=== PATIENT | female | born 1950 | race Caucasian/White ===

== ENCOUNTER 2024-08-16 09:16 | Emergency (ER) | payer MEDICARE, OTHER, SELFPAY ==
[2024-08-16 09:20] VITALS: BP 118/56
--- NOTE | 2024-08-16 09:41 | ED.GENMED ---
History of Present Illness
General
Chief Complaint: Heart Rate Problem
Source: patient
Exam Limitations: none
Time Seen by Provider: 08/16/24 09:25
History of Present Illness
History of Present Illness:
73-year-old female presents with generalized weakness. She was brought here by EMS from facility. She was trying get out of her bed and felt very weak and she slid out of to the floor. She did not injure herself from sliding out of bed. She was
found to be in bigeminy upon EMS arrival. She denies chest pain or shortness of breath. She states she feels very dehydrated. No fevers no urinary symptoms.
Phy Exam
Physical Exam
Physical Exam:
General: Well-appearing female no acute respiratory distress
HEENT: Normocephalic mucosa dry neck is supple
Heart: Regular rate and rhythm
Lungs: Clear no wheeze
Extremities: No cyanosis or edema
Course
Orders/Labs/Results
Orders:
Orders
08/16/24 09:18
Electrocardiogram (*1) Urgent
Reason for Study: Chest Pain
EKG- Treatment ONCE
08/16/24 09:28
Complete Blood Count/With Diff Urgent
Comprehensive Metabolic Panel Urgent
Troponin I Urgent
08/16/24 09:41
0.9% Sodium Chloride 1000 ml [Nss] 1,000 ml IV BOLUS
08/16/24 09:43
CR Chest - 2 Views Urgent
Comment:
Reason For Exam: weakness
Abnormal Lab Results
08/16/24
09:28
WBC 11.2 H 10^3/uL
(4.8-10.8)
RBC 3.59 L 10^6/uL
(4.20-5.40)
Hgb 11.1 L g/dL
(12.0-16.0)
Hct 33.4 L %
(37.0-47.0)
RDW 16.4 H %
(11.5-14.5)
Absolute Neuts (auto) 9.0 H 10^3/uL
(1.4-6.5)
Absolute Lymphs (auto) 1.0 L 10^3/uL
(1.2-3.4)
Absolute Monos (auto) 1.0 H 10^3/uL
(0.1-0.6)
Neutrophils % 80.1 H %
(42.2-75.2)
Lymphocytes % 8.9 L %
(20.5-51.1)
BUN 18 H mg/dl
(7-17)
AST 12 L U/L
(14-36)
08/16/24 09:28
08/16/24 09:28
Vital Signs
Initial and Last Documented VS:
Initial Vital Signs
Temp Pulse Resp BP Pulse Ox
97.7 F 84 18 118/56 97
08/16/24 09:20 08/16/24 09:20 08/16/24 09:20 08/16/24 09:20 08/16/24 09:20
Last Documented Vital Signs
Temp Pulse Resp BP Pulse Ox
97.7 F 71 11 117/61 94
08/16/24 09:20 08/16/24 12:15 08/16/24 12:15 08/16/24 12:09 08/16/24 12:15
MDM/Problems Addressed
Differential Diagnosis Includes:
Weakness. Looks dry on exam. EKG from EMS showed bigeminy however there is no bigeminy noted currently. Heart rate is in the 80s on the monitor. Will check labs. Hydrate. Chest x-ray ordered due to weakness
*Critical Care Note
Total Time (30-74mins, 75-104mins- exclusive of procedures): Not Applicable
Update Note
Update Note:
Patient reevaluated appears stable does complain of weakness. Now spoke with son-in-law who is now in the room. This is the first time she slid out of bed. He also states this is the first time she has been weak like this. Workup today was
unrevealing between chest x-ray and labs. She was hydrated as she appears dry suspect mild dehydration. No indication for admission.
ED Attending Note
-
Portions of this chart may have been created with voice recognition software.� Occasional wrong word or��sound alike� substitutions may have occurred due to the inherent limitations of voice recognition software.
Discharge Plan
Departure
Patient Disposition: Home (Routine Discharge)
Date of Disposition: 08/16/24
Time of Disposition: 13:04
Patient with high blood pressure during this ER visit?: No
Discharge Problem:
Weakness
Instructions: Weakness
Prescriptions:
No Action
rivastigmine tartrate 1.5 mg Capsule
1.5 mg PO BID
atorvastatin 40 mg Tablet
40 mg PO HS
acetaminophen 325 mg Tablet
650 mg PO Q4HPRN PRN (Reason: mild pain/temp>100F)
polyethylene glycol 3350 [Miralax] 17 gram Powder In Packet
17 g PO DAILYPRN PRN (Reason: constipation)
ondansetron HCl [Zofran] 4 mg Tablet
4 mg PO Q6HPRN PRN (Reason: nausea)
amlodipine 2.5 mg Tablet
2.5 mg PO DAILY
famotidine 20 mg Tablet
20 mg PO DAILY
magnesium hydroxide [Milk of Magnesia] 400 mg/5 mL Suspension
30 ml PO DAILYPRN PRN (Reason: if no bm x 3 days)
calcium carbonate [Oyster Shell Calcium 500] 500 mg calcium (1,250 mg) Tablet
500 mg PO BID
bisacodyl [Dulcolax (bisacodyl)] 10 mg Suppository
10 mg NE DAILYPRN PRN (Reason: if mom is ineffective after 24hrs)
pantoprazole 40 mg Tablet,Delayed Release (Dr/Ec)
40 mg PO DAILY
calcium carbonate [Tums] 200 mg calcium (500 mg) Tablet,Chewable
400 mg PO Q8HPRN PRN (Reason: indigestion)
Fleet Enema 19-7 gram/118 mL Enema
118 ml NE DAILYPRN PRN (Reason: if dulcolax is ineffective after 24hrs)
nitroglycerin [Nitrostat] 0.4 mg Tablet, Sublingual
0.4 mg SUBLINGUAL [id number] PRN (Reason: chest pain)
methimazole 5 mg Tablet
2.5 mg PO DAILY
sertraline 25 mg Tablet
25 mg PO DAILY
aspirin 81 mg Tablet,Chewable
81 mg PO DAILY
mirtazapine 15 mg Tablet
7.5 mg PO HS
carbidopa-levodopa 25-100 mg Tablet
1.5 tab PO QID
simethicone 80 mg Tablet,Chewable
80 mg PO Q6HPRN PRN (Reason: gas)
metoprolol tartrate 25 mg Tablet
25 mg PO BID
Referrals:
Mg Gautam MD [Family Provider] -
Activity Restrictions/Additional Instructions:
It appears that you were dehydrated today. Please stay hydrated. Return here for worsening symptoms otherwise follow-up with your doctor.
Interventions
Interventions:
*Risk Screen - Suicide Last Done: 08/16/24 09:20
*General Assessment Last Done: 08/16/24 09:20
*Neglect/Abuse Screening Last Done: 08/16/24 09:20
*ED COVID-19 Vaccine History Last Done: 08/16/24 09:20
ED- Cardiac Assessment Last Done: 08/16/24 09:33
ED- Pulmonary Assessment Last Done: 08/16/24 09:33
Discharge Date and Time
Print Language: [place]
[2024-08-16] MEDS: NSS 1000 IV (09:42)
[2024-08-16 10:30] LABS: Troponin I < 0.012 ng/ml
[2024-08-16 10:51] LABS: Blood Urea Nitrogen 18 mg/dl (7-17); Estimated Creatinine Clearance 68 ml/min; Glucose 82 mg/dl (70-99); eGFR > 60.00
[2024-08-16 10:52] LABS: ALT (SGPT) < 10 U/L (0-35); AST (SGOT) 12 U/L (14-36); Albumin 3.8 g/dl (3.5-5.0); Alkaline Phosphatase 87 U/L (38-126); Calcium 9.4 mg/dl (8.4-10.2); Carbon Dioxide 29 mmol/L (22-30); Chloride 102 mmol/L (98-107); Potassium 3.8 mmol/L (3.5-5.1); Sodium 139 mmol/L (135-145); Total Protein 6.3 g/dl (6.3-8.2)
[2024-08-16 11:01] LABS: % Basophils 0.4 % (0-2); % Eosinophils 1.2 % (0-6); % Immature Granulocytes 0.3 % (0-0.5); % Lymphocytes 8.9 % (20.5-51.1); % Monocytes 9.1 % (1.7-9.3); % Neutrophils 80.1 % (42.2-75.2); Absolute Basophils 0.1 10^3/uL (0-0.2); Absolute Eosinophils 0.1 10^3/uL (0-0.7); Hematocrit 33.4 % (37.0-47.0); Hemoglobin 11.1 g/dL (12.0-16.0); Mean Corp Hgb Conc. 33.2 g/dL (33.0-37.0); Mean Corpuscular Hgb 30.9 pg (27.0-31.0); Nucleated Red Blood Cells % 0 %; Platelet Count 148 10^3/uL (130-400); Red Blood Cell Count 3.59 10^6/uL (4.20-5.40); Red Cell Dist. Width 16.4 % (11.5-14.5); White Blood Cell Count 11.2 10^3/uL (4.8-10.8)
[2024-08-16 12:09] VITALS: BP 117/61
[2024-08-16 13:00] VITALS: BP 96/65
[2024-08-16 14:00] VITALS: BP 101/64
== END 2024-08-16 14:36 | disposition home or self-care (01) ==
LOC: EMR 09:16
PROVIDERS: EMERGENCY PHYSICIAN Student in an Organized Health Care Education/Training Program; FAMILY PHYSICIAN Internal Medicine
DX: R53.1 Weakness (principal); W06.XXXA Fall from bed, initial encounter
CPT/HCPCS: 99285; 96360; 71046; 80053; 84484; 85025; 93005

== ENCOUNTER 2024-08-17 13:39 | Emergency (ER) | payer MEDICARE, OTHER, SELFPAY ==
[2024-08-17 13:43] VITALS: BP 149/59; BMI 20.6
[2024-08-17 14:00] VITALS: BP 133/65
[2024-08-17 14:02] LABS: % Basophils 0.8 % (0-2); % Eosinophils 2.6 % (0-6); % Immature Granulocytes 0.3 % (0-0.5); % Lymphocytes 15.2 % (20.5-51.1); % Monocytes 11.7 % (1.7-9.3); % Neutrophils 69.4 % (42.2-75.2); Absolute Basophils 0.1 10^3/uL (0-0.2); Absolute Eosinophils 0.2 10^3/uL (0-0.7); Absolute Lymphocytes 1.4 10^3/uL (1.2-3.4); Absolute Monocytes 1.1 10^3/uL (0.1-0.6); Absolute Neutrophils 6.2 10^3/uL (1.4-6.5); Hematocrit 29.1 % (37.0-47.0); Hemoglobin 9.9 g/dL (12.0-16.0); Mean Corpuscular Hgb 31.6 pg (27.0-31.0); Nucleated Red Blood Cells % 0 %; Red Blood Cell Count 3.13 10^6/uL (4.20-5.40); Red Cell Dist. Width 16.7 % (11.5-14.5)
--- NOTE | 2024-08-17 14:06 | ED.GENMED ---
History of Present Illness
<Mundo Hilario PA-C - Last Filed: 08/17/24 14:48>
General
Chief Complaint: Heart Rate Problem
Source: patient
Exam Limitations: none
Time Seen by Provider: 08/17/24 13:46
History of Present Illness
History of Present Illness:
73-year-old female seen here yesterday by myself presents for reevaluation for weakness. Heart rate was checked at the facility which showed heart rate in the 30s to 40s. She is noted to be in bigeminy. She denies chest pain. She denies
abdominal pain vomiting headache dizziness or shortness of breath. No other complaints at this time
Phy Exam
<Mundo Hilario PA-C - Last Filed: 08/17/24 14:48>
Physical Exam
Physical Exam:
General: Well-appearing female no acute respiratory distress
HEENT: Normocephalic atraumatic
Heart: RRR, no murmurs
Lungs: CTA
Ext: no cyanosis
SKin: Warm, no rash
Neuro: Alert and oriented no facial asymmetry no drift
Course
<Mundo Hilario PA-C - Last Filed: 08/17/24 14:48>
Orders/Labs/Results
Orders:
Orders
08/17/24 13:42
Electrocardiogram (*1) Urgent
Reason for Study: Chest Pain
EKG- Treatment ONCE
08/17/24 13:49
Complete Blood Count/With Diff Urgent
Comprehensive Metabolic Panel Urgent
08/17/24 14:19
Troponin I Urgent
08/17/24 14:46
NSS 1000mL Bolus over 1 hr 0.9% Sodium Chloride 1000 ml [Nss] 1,000 ml IV BOLUS
Abnormal Lab Results
08/17/24
13:49
RBC 3.13 L 10^6/uL
(4.20-5.40)
Hgb 9.9 L g/dL
(12.0-16.0)
Hct 29.1 L %
(37.0-47.0)
MCH 31.6 H pg
(27.0-31.0)
RDW 16.7 H %
(11.5-14.5)
Absolute Monos (auto) 1.1 H 10^3/uL
(0.1-0.6)
Lymphocytes % 15.2 L %
(20.5-51.1)
Monocytes % 11.7 H %
(1.7-9.3)
Creatinine 0.5 L mg/dL
(0.6-1.0)
AST 11 L U/L
(14-36)
Total Protein 5.8 L g/dl
(6.3-8.2)
08/17/24 13:49
08/17/24 13:49
Vital Signs
Initial and Last Documented VS:
Initial Vital Signs
Temp Pulse Resp BP Pulse Ox
98.0 F 83 16 149/59 95
08/17/24 13:43 08/17/24 13:43 08/17/24 13:43 08/17/24 13:43 08/17/24 13:43
Last Documented Vital Signs
Temp Pulse Resp BP Pulse Ox
98.0 F 89 22 133/65 96
08/17/24 13:43 08/17/24 14:30 08/17/24 14:30 08/17/24 14:00 08/17/24 14:30
<Estelita Talbert MD - Last Filed: 08/17/24 14:34>
Orders/Labs/Results
Orders:
Orders
08/17/24 13:42
Electrocardiogram (*1) Urgent
Reason for Study: Chest Pain
EKG- Treatment ONCE
08/17/24 13:49
Complete Blood Count/With Diff Urgent
Comprehensive Metabolic Panel Urgent
08/17/24 14:19
Troponin I Urgent
08/17/24 14:46
NSS 1000mL Bolus over 1 hr 0.9% Sodium Chloride 1000 ml [Nss] 1,000 ml IV BOLUS
Abnormal Lab Results
08/17/24
13:49
RBC 3.13 L 10^6/uL
(4.20-5.40)
Hgb 9.9 L g/dL
(12.0-16.0)
Hct 29.1 L %
(37.0-47.0)
MCH 31.6 H pg
(27.0-31.0)
RDW 16.7 H %
(11.5-14.5)
Absolute Monos (auto) 1.1 H 10^3/uL
(0.1-0.6)
Lymphocytes % 15.2 L %
(20.5-51.1)
Monocytes % 11.7 H %
(1.7-9.3)
Creatinine 0.5 L mg/dL
(0.6-1.0)
AST 11 L U/L
(14-36)
Total Protein 5.8 L g/dl
(6.3-8.2)
08/17/24 13:49
08/17/24 13:49
Vital Signs
Initial and Last Documented VS:
Initial Vital Signs
Temp Pulse Resp BP Pulse Ox
98.0 F 83 16 149/59 95
08/17/24 13:43 08/17/24 13:43 08/17/24 13:43 08/17/24 13:43 08/17/24 13:43
Last Documented Vital Signs
Temp Pulse Resp BP Pulse Ox
98.0 F 89 22 133/65 96
08/17/24 13:43 08/17/24 14:30 08/17/24 14:30 08/17/24 14:00 08/17/24 14:30
<Mundo Hilario PA-C - Last Filed: 08/17/24 14:48>
MDM/Problems Addressed
Differential Diagnosis Includes:
Weakness. Bigeminy noted on EKG which was seen on yesterday's EMS strip however yesterday the patient was not in bigeminy. Will recheck labs and troponin. Discussed with emergency room attending
<Mundo Hilario PA-C - Last Filed: 08/17/24 14:48>
*Critical Care Note
Total Time (30-74mins, 75-104mins- exclusive of procedures): Not Applicable
<Mundo Hilario PA-C - Last Filed: 08/17/24 14:48>
Update Note
Update Note:
Patient reevaluated. Daughter now in the room who states the patient has not been able to eat or drink anything for the past 2 to 3 weeks. She states she is losing weight and looks more pale than usual. Patient denies any pain. Hemoglobin
yesterday 11.1 and hemoglobin today is 9.9. Rectal exam showed brown stool which was heme-negative.
Discussed with emergency room attending saw the patient as well. Long discussion with family
And patient. Patient has overwhelming fatigue and weakness with trending down hemoglobin. There is been a lack of p.o. intake as well. Fluids ordered. Suspect weakness could be mouth factorial but unsuitable for discharge at this time
ED Attending Note
<Mundo Hilario PA-C - Last Filed: 08/17/24 14:48>
-
Portions of this chart may have been created with voice recognition software.� Occasional wrong word or��sound alike� substitutions may have occurred due to the inherent limitations of voice recognition software.
<Estelita Talbert MD - Last Filed: 08/17/24 14:34>
ED Attending Note
Patient seen and examined by attending physician: Yes
I performed the substantive portion of visit, reviewed & personally made and approve the management plan that is documented in note by myself or CHRIS.: Yes
ED Attending Note:
Patient appears nontoxic but pale. Patient complains of generalized weakness and exhaustion. Daughter reports that she has been declining and not eating as well. Patient has bigeminy on vehicle monitor technician. Patient has subtle bilateral crackles
bilaterally, however, her chest x-ray yesterday shows no sign of pneumonia or pulmonary edema. Patient's abdomen is soft and nontender.
Patient's hemoglobin has dropped more than 1 g since yesterday. We will do a rectal exam to check for GI bleed. Patient would likely be admitted for generalized weakness and to trend her hemoglobin. With a hemoglobin of 9.9, I do not think she
needs a blood transfusion at this time
Discharge Plan
Departure
Patient Disposition: Admit
Date of Disposition: 08/17/24
Time of Disposition: 14:47
Presentation/result/management discussed w/ accepting MD/DO: Hospitalist
Discharge Problem:
Weakness
Prescriptions:
No Action
rivastigmine tartrate 1.5 mg Capsule
1.5 mg PO BID
atorvastatin 40 mg Tablet
40 mg PO HS
acetaminophen 325 mg Tablet
650 mg PO Q4HPRN MDD 3000mg PRN (Reason: mild pain/temp>100F)
polyethylene glycol 3350 [Miralax] 17 gram Powder In Packet
17 g PO DAILYPRN PRN (Reason: constipation)
ondansetron HCl [Zofran] 4 mg Tablet
4 mg PO Q6HPRN PRN (Reason: nausea)
amlodipine 2.5 mg Tablet
2.5 mg PO DAILY
famotidine 20 mg Tablet
20 mg PO DAILY
magnesium hydroxide [Milk of Magnesia] 400 mg/5 mL Suspension
30 ml PO DAILYPRN PRN (Reason: if no bm x 3 days)
calcium carbonate [Oyster Shell Calcium 500] 500 mg calcium (1,250 mg) Tablet
500 mg PO BID
bisacodyl [Dulcolax (bisacodyl)] 10 mg Suppository
10 mg SD DAILYPRN PRN (Reason: if mom is ineffective after 24hrs)
pantoprazole 40 mg Tablet,Delayed Release (Dr/Ec)
40 mg PO DAILY
calcium carbonate [Tums] 200 mg calcium (500 mg) Tablet,Chewable
400 mg PO Q8HPRN PRN (Reason: indigestion)
Fleet Enema 19-7 gram/118 mL Enema
118 ml SD DAILYPRN PRN (Reason: if dulcolax is ineffective after 24hrs)
nitroglycerin [Nitrostat] 0.4 mg Tablet, Sublingual
0.4 mg SUBLINGUAL [id number] PRN (Reason: chest pain)
methimazole 5 mg Tablet
2.5 mg PO DAILY
sertraline 25 mg Tablet
25 mg PO DAILY
aspirin 81 mg Tablet,Chewable
81 mg PO DAILY
mirtazapine 15 mg Tablet
7.5 mg PO HS
carbidopa-levodopa 25-100 mg Tablet
1.5 tab PO QID
simethicone 80 mg Tablet,Chewable
80 mg PO Q6HPRN PRN (Reason: gas)
metoprolol tartrate 25 mg Tablet
25 mg PO BID
Interventions
Interventions:
*Risk Screen - Suicide Last Done: 08/17/24 13:43
*General Assessment Last Done: 08/17/24 13:43
*Neglect/Abuse Screening Last Done: 08/17/24 13:43
*ED- Fall Risk Assessment Last Done: 08/17/24 13:43
ED- Cardiac Assessment Last Done: 08/17/24 13:43
ED- Pulmonary Assessment Last Done: 04/03/25 13:43
Discharge Date and Time
Print Language: SUDANESE
[2024-08-17 14:36] LABS: ALT (SGPT) < 10 U/L (0-35); AST (SGOT) 11 U/L (14-36); Albumin 3.7 g/dl (3.5-5.0); Alkaline Phosphatase 75 U/L (38-126); Blood Urea Nitrogen 17 mg/dl (7-17); Carbon Dioxide 25 mmol/L (22-30); Chloride 105 mmol/L (98-107); Estimated Creatinine Clearance 68 ml/min; Glucose 99 mg/dl (70-99); Potassium 3.5 mmol/L (3.5-5.1); Sodium 138 mmol/L (135-145); Total Bilirubin 0.9 mg/dl (0.2-1.3); Total Protein 5.8 g/dl (6.3-8.2); eGFR > 60.00
[2024-08-17 14:42] LABS: Platelet Count 131 10^3/uL (130-400)
[2024-08-17 14:43] LABS: Acanthocytes 1+; Anisocytosis 1+; Hypochromasia 1+; Normal RBC Morphology No; Ovalocytes 1+; Polychromasia 1+
[2024-08-17] MEDS: NSS 1000 IV (14:56)
[2024-08-17 15:00] VITALS: BP 116/57
[2024-08-17 15:10] LABS: Troponin I < 0.012 ng/ml
--- NOTE | 2024-08-17 15:21 | W.PN.UPDATE ---
Update Note
Progress Note Update
I saw and examined the patient.
The COUNSELOR EDUCATION PROFESSOR or PA's note was reviewed and I agree with the note.
Comment: 79-year-old female presents with a chief complaint of generalized weakness. She presented to the ER yesterday with a complaint of generalized weakness. She was given IV fluids and sent back to her facility.
133/65, 89, 22, 98.0 �F, 96% RA
Gen: NAD, AAOx3.
Eyes: EOMI, PERRLA, no scleral icterus.
Neck: supple.
CV: RRR, +S1/S2, no m/r/g.
Resp: CTAB, no rales, wheezes, or rhonchi.
Abd: +BS, soft, NT, ND
Skin: No rashes.
Neuro: CN 2-12 intact, non-focal.
Psych: Normal mood and affect.
Lab Results
08/17/24 08/17/24
13:49 14:19
WBC 9.0
RBC 3.13 L
Hgb 9.9 L
Hct 29.1 L
MCV 93.0
MCH 31.6 H
MCHC 34.0
RDW 16.7 H
Plt Count 131
MPV Not Reportable
Abs Immat Gran (auto) 0.0
Absolute Neuts (auto) 6.2
Absolute Lymphs (auto) 1.4
Absolute Monos (auto) 1.1 H
Absolute Eos (auto) 0.2
Absolute Basos (auto) 0.1
CBC Comment
Immature Gran % 0.3
Neutrophils % 69.4
Lymphocytes % 15.2 L
Monocytes % 11.7 H
Eosinophils % 2.6
Basophils % 0.8
Nucleated RBC % 0
Normal RBC Morphology No
Polychromasia 1+
Hypochromasia 1+
Anisocytosis 1+
Ovalocytes 1+
Acanthocytes (Spur) 1+
Sodium 138
Potassium 3.5
Chloride 105
Carbon Dioxide 25
BUN 17
Creatinine 0.5 L
Estimated Creat Clear 68
eGFR > 60.00
Glucose 99
Calcium 9.0
Total Bilirubin 0.9
AST 11 L
ALT < 10
Alkaline Phosphatase 75
Troponin I < 0.012
Total Protein 5.8 L
Albumin 3.7
CXR: No acute cardiopulmonary process.
Generalized weakness:
-Apparently patient has had poor oral intake over the last 2 to 3 weeks due to nausea. Denies melena, hematochezia, vomiting, abdominal pain. Patient's daughter states that she has had weight loss but cannot state how much weight loss she has had
-Doubt patient's hemoglobin of 9.9 as the cause of her weakness. The drop from yesterday is due to IV fluids and is dilutional. Patient is heme-negative in the ER as per discussion with GURPREET Hilario.
-Patient does have a history of hyperthyroidism on methimazole. TSH with reflex free T4 has been added to her lab work.
-No indication for hospitalization at this time. Risks of hospitalization include further deconditioning, requiring a nosocomial infection, DVT and PE due to decreased mobility, etc. This was discussed with the patient's daughter.
-ER attending and advanced practitioner updated on my evaluation.
Recommendations: Discharge back to assisted facility. Recommend BMP and CBC in 1 week. Recommend follow-up on results of TSH and reflex free T4 and make adjustments to methimazole if needed based on those results.
--- NOTE | 2024-08-17 15:35 | CON.HOSP ---
Consultation
-
Date/Time Consultation Requested: 08/17/2024 1448
Date/Time Consultation Performed: 08/17/2024 1500
Requesting Provider: Mundo DAWKINS
Performing Provider: Thuy FRANCOIS
Reason for Consultation: weakness
Family Physician
-
Family Physician: Mg Gautam
Chief Complaint
-
generalized weakness
History of Present Illness
Patient is a 73-year-old female with past medical history Parkinson's disease, dementia, hyperlipidemia, ASCVD, PVD, essential hypertension, GERD and depression/anxiety who presented to [facility] ED for evaluation of generalized weakness and decreased
appetite for past 3 weeks. Patient is a poor historian, daughter at bedside who assists with HPI. She reports that approximately 3 weeks ago patient began complaining of nausea and had a few episodes of nausea. Since then she has continued to
complain of nausea with no episodes of emesis. Since this started patient has had a decrease in PO intake and appetite is very poor. She notes weight loss but can not give the amount loss. Denies any fever, chills, cough, shortness of breath,
constipation, diarrhea or urinary symptoms.
Medical History
Past Medical History
Past Medical History: Reports Other
Additional Past Medical History:
Parkinson's disease
dementia
hyperlipidemia
hyperthyroidism
ASCVD
PVD
essential hypertension
GERD
depression/anxiety
hx CA
Past Surgical History: Reports Other
Additional Past Surgical History:
hysterectomy
cardiac stent x2
Social History
Tobacco: Former Smoker (40 pack year history, quit 7 years ago )
Alcohol: None
Living: Skilled Nursing ([facility] )
Family History
Family History: Other (Father: CAD)
Allergies / Home Medications
Allergies reflects when Allergies were last updated in [facility].
Home Medications with original date entered in [facility]
Allergy/Medication List:
Allergies
Allergy/AdvReac Type Severity Reaction Status Date / Time
Penicillins Allergy Mild Rash Verified 08/16/24 09:19
Sulfa (Sulfonamide Allergy Mild Rash Verified 08/16/24 09:19
Antibiotics)
Home Medications
acetaminophen 325 mg tablet 650 mg PO Q4HPRN PRN mild pain/temp>100F 08/16/24
amlodipine 2.5 mg tablet 2.5 mg PO DAILY 08/16/24
aspirin 81 mg chewable tablet 81 mg PO DAILY 08/16/24
atorvastatin 40 mg tablet 40 mg PO HS 08/16/24
bisacodyl 10 mg rectal suppository (Dulcolax (bisacodyl)) 10 mg MN DAILYPRN PRN if mom is ineffective after 24hrs 08/16/24
calcium carbonate (Oyster Shell Calcium 500) 500 mg PO BID 08/16/24
calcium carbonate (Tums) 400 mg PO Q8HPRN PRN indigestion 08/16/24
carbidopa 25 mg-levodopa 100 mg tablet 1.5 tab PO QID 08/16/24
famotidine 20 mg tablet 20 mg PO DAILY 08/16/24
magnesium hydroxide 400 mg/5 mL oral suspension (Milk of Magnesia) 30 ml PO DAILYPRN PRN if no bm x 3 days 08/16/24
methimazole 5 mg tablet 2.5 mg PO DAILY 08/16/24
metoprolol tartrate 25 mg tablet 25 mg PO BID 08/16/24
mirtazapine 15 mg tablet 7.5 mg PO HS 08/16/24
nitroglycerin 0.4 mg sublingual tablet (Nitrostat) 0.4 mg sublingual [id number] PRN chest pain 08/16/24
ondansetron HCl 4 mg tablet 4 mg PO Q6HPRN PRN nausea 08/16/24
pantoprazole 40 mg tablet,delayed release 40 mg PO DAILY 08/16/24
polyethylene glycol 3350 17 gram oral powder packet (Miralax) 17 g PO DAILYPRN PRN constipation 08/16/24
rivastigmine tartrate 1.5 mg capsule 1.5 mg PO BID 08/16/24
sertraline 25 mg tablet 25 mg PO DAILY 08/16/24
simethicone 80 mg chewable tablet 80 mg PO Q6HPRN PRN gas 08/16/24
sodium phosphates 19 gram-7 gram/118 mL enema (Fleet Enema) 118 ml MN DAILYPRN PRN if dulcolax is ineffective after 24hrs 08/16/24
Review of Systems
-
Unable to obtain full review of systems at this time due to: Dementia
History Source: Family
Constitutional: Reports Weight Loss and Fatigue
Abdomen/GI: Reports Nausea, Vomiting and Anorexia
Physical Exam
Vital Signs
Vital Signs
Temp Pulse Resp BP Pulse Ox
98.0 F 89 22 133/65 96
08/17/24 13:43 08/17/24 14:30 08/17/24 14:30 08/17/24 14:00 08/17/24 14:30
Physical Exam
General: Well Developed, Well Nourished, No Apparent Distress and Comfortable
HEENT: Normocephalic, Moist Mucous Membranes and Atraumatic
Respiratory: Clear and Non Labored Respirations
Cardiac: S1/S2 and Irregular Rhythm
Breast: Deferred by me
GI: Soft, Non Tender, Non Distended and Normal Bowel Sounds
Rectal: Deferred by Provider
Musculoskeletal: No Clubbing, No Cyanosis and No Edema
Neuro: Awake, Alert and Nonfocal/Grossly Intact
Psych: Calm and Apparent Dementia
Laboratory Results
-
Laboratory Results
08/17/24 13:49
08/17/24 13:49
Total Bilirubin 0.9 mg/dl (0.2-1.3) 08/17/24 13:49
AST 11 U/L (14-36) L 08/17/24 13:49
ALT < 10 U/L (0-35) 08/17/24 13:49
Alkaline Phosphatase 75 U/L (38-126) 08/17/24 13:49
Troponin I < 0.012 ng/ml 08/17/24 14:19
Data Reviewed
-
Lab Data: Labs Reviewed
Impression / Plan
-
IMPRESSION/PLAN:
#adult failure to thrive
increased generalized weakness and decreased appetite
- No indication for hospital admission
- TSH and FT4 pending, can send results post discharge
- Patient can safely be discharged back to SNF
- follow up out patient with primary provider at facility
#Parkinson's disease
- continue carbidopa-levodopa
#dementia
- continue rivastigmine
#hyperthyroidism
- TSH and FT4 pending, can send results post discharge
- continue methimazole
#hyperlipidemia
#ASCVD
#PVD
- continue aspirin and atorvastatin
#essential hypertension
- continue amlodipine, metoprolol
#GERD
- continue famotidine and pantoprazole
#depression/anxiety
- continue mirtazapine and sertraline
#hx CA
s/p cardiac stent x2
Code status: full code
[2024-08-17 16:00] VITALS: BP 123/54
[2024-08-17 16:27] LABS: Free T4 2.17 ng/dl (0.78-2.19)
[2024-08-17 16:41] LABS: TSH 3.34 uIU/ml (0.47-4.68)
--- NOTE | 2024-08-17 16:47 | CM ---
Met with patient and dgtr. Dgtr wondering why no admit to [facility]. reviewed d/c plan and that labs can be done at SNF. Called spoke to MAGGIE Rivera at [facility]. She said since January no weight loss. Patient not frequent lorne. MAGGIE tried to get
dgtr to have patient stay at SNF and get IV fluids ordered there. MAGGIE feels patient is dehydrated . BMP was done on 08/15/24 at SNF. Asked dgtr to speak to MAGGIE to come up with a plan that dgtr can abide with. also told dgtr if she feels crosscutter rolled glass
might be helpful to make and appointment for her mother and set up transport with the SNF.
Dgtr said she would talk to MAGGIE.
[2024-08-17 17:00] VITALS: BP 124/69
[2024-08-17 18:00] VITALS: BP 113/66
== END 2024-08-17 20:46 | disposition home or self-care (01) ==
LOC: EMR 13:39
PROVIDERS: EMERGENCY PHYSICIAN Emergency Medicine; FAMILY PHYSICIAN Internal Medicine
DX: R53.1 Weakness (principal); I10 Essential (primary) hypertension; F32.A Depression, unspecified; F41.9 Anxiety disorder, unspecified; K21.9 Gastro-esophageal reflux disease without esophagitis; Z87.891 Personal history of nicotine dependence
CPT/HCPCS: 80053; 84439; 84443; 84484; 85025; 93005; 96360; 99284

== ENCOUNTER 2024-10-20 16:16 | Inpatient (IN) | payer MEDICARE, OTHER, SELFPAY ==
[2024-10-20] VITALS (11 sets, daily range): BP systolic 103–137; BP diastolic 55–91; BMI 17.6; BMI 18.2
--- NOTE | 2024-10-20 11:24 | ED.GENMED ---
History of Present Illness
General
Chief Complaint: Abdominal Pain
Source: patient, family (daughter at bedside), physician (would consider admission for failure to thrive. BMI 17 in our office. She is very ill/pale appearing. I would be quite surprised if her CT is unremarkable, she has lost an additional 20 lbs
in four weeks from what her daughter told me. Would consider an EGD if she were to be admitted. Recently evalu) and other (PCP Froilan texts: sending in a patient for failure to thrive and profound unintentional weight loss. Patient's name is Angela
Long 1950. She was recently in the ED earlier in August. Since that time has lost 20 lbs over the past month, poor p.o intake and previous concern for a drop in Hgb.)
Time Seen by Provider: 10/20/24 11:23
History of Present Illness
History of Present Illness:
73 yo female w h/o Parkinsons, Dementia, PVD, ASCVD, COPD, CHF, HTN, HLD, [place], Hypothyroid, Depression present from [facility] with her daughter who states pt became 'out of character' 2 months ago w constant nausea, intermittent vomiting,
abdominal pain, dry heaves, inability to eat. Evaluated here on 08/16 for weakness after sliding out of bed, given IVF's and back to facility. Back on 08/17 again for weakness, found in bigeminy, admitted, persistent nausea and not eating, weight loss.
According to DC record, sent back to facility for failure to thrive.
Daughter at bedside took pt to GI today Dr. Mcgovern sent pt here for evaluation as noted in above text from him.
Pt denies pain anywhere. Denies feeling SOB. No change in color of stool.
Review of Systems
Review of Systems
Allergies reviewed?: Yes
All Other Systems: ROS reviewed and negative except as documented in HPI and ROS
Constitutional: Reports fatigue
Respiratory: Denies trouble breathing
Cardiac: Denies chest pain, palpitations or syncope
ABD/GI: Reports abdominal pain (has had this but denies at this time), nausea, vomiting and anorexia; Denies bloody stools or black stools
: Denies dysuria
Musculoskeletal: Denies edema
Neurological: Reports weakness (generalized); Denies headache
Psychiatric: Reports other ( dementia, but seems to be answering questions appropriately)
Phy Exam
Physical Exam
Physical Exam:
GENERAL: No acute distress. A&Ox3. Pale, frail appearing
CONSTITUTIONAL: Afebrile.
EYES: clear, conjunctivae normal
ENMT: dry mucus membranes, Pharynx nl
RESPIRATORY: Regular respirations, nonlabored, lungs clear.
CARDIOVASCULAR: Regular rate and rhythm, no murmurs, no rubs.
GI: Soft, nontender, normal BS
Rectal: Brown stool, heme neg
MUSCULOSKELETAL: Moves with ease. Well perfused. No edema
SKIN: Warm, dry, pale
PSYCH: Depressed mood and affect. Well kept, interactive and appropriate
NEUROLOGIC: Awake, alert and oriented. No focal neurological deficits
Course
Orders/Labs/Results
Orders:
Orders
10/20/24 Breakfast
Clear Liquid
At Your Request: Limited Participation
Does patient need a safe tray?: No
10/20/24 11:33
0.9% Sodium Chloride 1000 ml [Nss] 1,000 ml IV BOLUS
Ondansetron Injectable [Zofran] 4 mg IV NOW STA
10/20/24 11:34
CT Abd/pel W Iv And Oral Contr Urgent
Comment:
Reason For Exam: wt loss, pale, nausea
Iohexol [Omnipaque] See Protocol PO NOW STA
10/20/24 11:44
Type+Screen Urgent
Complete Blood Count/With Diff Urgent
Comprehensive Metabolic Panel Urgent
TSH Reflex To Free T4 Urgent
10/20/24 12:05
ABO2 Routine
BBK Wristband Number:
Associate notified that ABO2 has been ordered: [id number]
Date: 10/20/24
Time: 11:50
[employer] Installer ID: [id number]
10/20/24 15:07
Straight cath- Treatment ONCE
10/20/24 15:17
Cefepime HCl [Maxipime] 2,000 mg IV NOW STA
10/20/24 15:20
Urinalysis Reflex To Culture Urgent
Date Specimen was Collected: 10/20/24
Time Specimen was Collected: 15:09
Urine Microscopic Reflex Cult Urgent
Urine Culture Urgent
JOE Source: U
Specimen Description:
Date Specimen was Collected: 10/20/24
Time Specimen was Collected: 15:09
Apixaban [Eliquis] 10 mg PO NOW STA
10/20/24 15:52
Potassium Chloride 10% Elixir [KCl Elixir] 40 meq PO NOW STA
10/20/24 15:58
Admit/Transfer Patient As Directed
Co-Sign Provider:
Level of Care: Inpatient admission
Assign to:: Medical/Surgical
Physician / Group: saulo
Diagnosis: DVT
Reason for Hospitalization: DVT
Expected length of stay greater than two midnights?: Yes
ELOS- Estimated Length of Stay in days: 3
I certify the patient meets the requirements for IP care: Yes
10/20/24 15:59
PRN Pain Medication Management As Directed
May give lesser potent ordered pain med per pt: Yes
preference::
Protocol:: Medication orders for pain may be administered in a
manner that supports deferring to patient preference
when the pt is:
- Requesting an ordered lesser potent pain medication.
Least to most potent pain medications are defined
as: acetaminophen < NSAID < tramadol < opioids
(morphine, oxycodone, hydromorphone).
- Requesting a lesser dose of the same medication IF
ORDERED.
- Requesting a less intrusive route of administration
if both routes are prescribed by the provider (PO <
IV).
10/20/24 16:00
Code Status As Directed
Resuscitation Status: Full Code
10/20/24 19:38
0.9% Sodium Chloride 1000 ml [Nss] 1,000 ml IV 60 mls/hr
Acetaminophen [Tylenol] 650 mg PO Q4HPRN PRN
Bisacodyl [Dulcolax] 10 mg RECTAL [id number] PRN
Carbidopa/Levodopa [Sinemet 25-100] 1.5 tablet PO QID
Docusate W/Senna [Senokot-S] 1 tablet PO BIDPRN PRN
Polyethylene Glycol Powder [Miralax] 17 grams PO DAILYPRN PRN
10/20/24 19:38
GASTROINTESTINAL CONSULT Routine
Consulting Provider: Martin Abdi
Was physician already notified: Yes
Activity As Directed
Activity Level: As Tolerated
Vital Signs As Directed
Frequency: Per unit guidelines
Ot Eval And Treat Routine
Pt Eval And Treat Routine
Activity Level: As Tolerated
10/20/24 20:00
Apixaban [Eliquis] 5 mg PO BID
Metoprolol [Lopressor] 25 mg PO BID
Rivastigmine Tartrate [Exelon] 1.5 mg PO BID
10/20/24 22:00
Atorvastatin [Lipitor] 40 mg PO HS
Cefepime HCl [Maxipime] 1,000 mg IV Q6H
Mirtazapine [Remeron] 7.5 mg PO HS
10/21/24 05:51
Basic Metabolic Panel IN AM
Complete Blood Count/No Diff IN AM
10/21/24 08:00
Amlodipine [Norvasc] 2.5 mg PO DAILY
Aspirin Chewable [Low Strength Aspirin] 81 mg PO DAILY
Famotidine [Pepcid] 20 mg PO DAILY
Methimazole [Tapazole] 2.5 mg PO DAILY
Pantoprazole [Protonix] 40 mg PO DAILY
Sertraline HCl [Zoloft] 25 mg PO DAILY
10/22/24 06:10
Basic Metabolic Panel IN AM
Complete Blood Count/No Diff IN AM
10/23/24 05:32
Basic Metabolic Panel IN AM
Complete Blood Count/No Diff IN AM
10/24/24 01:49
Basic Metabolic Panel IN AM
Complete Blood Count/No Diff IN AM
Abnormal Lab Results
10/20/24 10/20/24
11:44 15:20
RBC 2.92 L 10^6/uL
(4.20-5.40)
Hgb 8.6 L g/dL
(12.0-16.0)
Hct 26.7 L %
(37.0-47.0)
MCHC 32.2 L g/dL
(33.0-37.0)
RDW 18.7 H %
(11.5-14.5)
MPV 10.9 H fL
(7.4-10.4)
Absolute Lymphs (auto) 0.6 L 10^3/uL
(1.2-3.4)
Neutrophils % 84.2 H %
(42.2-75.2)
Lymphocytes % 8.0 L %
(20.5-51.1)
Potassium 3.2 L mmol/L
(3.5-5.1)
Creatinine 0.5 L mg/dL
(0.6-1.0)
Glucose 104 H mg/dl
(70-99)
AST 13 L U/L
(14-36)
Urine Ketones 1+ A
(Negative)
Ur Occult Blood Reflex 3+ A
(Negative)
Leukocyte Esterase Rfl 2+ A
(Negative)
Urine RBC 7-10 A /HPF
(0-2)
Urine Bacteria (Reflex) Few A
(Negative)
Crossmatch IS Only See Detail
10/20/24 11:44
10/20/24 11:44
Vital Signs
Initial and Last Documented VS:
Initial Vital Signs
Pulse Resp BP Pulse Ox
89 22 119/70 98
10/20/24 11:00 10/20/24 11:00 10/20/24 11:00 10/20/24 11:00
Last Documented Vital Signs
Temp Pulse Resp BP Pulse Ox
97.9 F 86 17 143/79 97
10/24/24 11:26 10/24/24 12:00 10/24/24 12:00 10/24/24 12:00 10/24/24 12:00
MDM/Problems Addressed
MDM/Problems Addressed:
73 yo female w h/o Parkinsons, Dementia, PVD, ASCVD, COPD, CHF, HTN, HLD, [place], Hypothyroid, Depression present from [facility] with her daughter who states pt became 'out of character' 2 months ago w constant nausea, intermittent vomiting,
abdominal pain, dry heaves, inability to eat. Evaluated here on 08/16 for weakness after sliding out of bed, given IVF's and back to facility. Back on 08/17 again for weakness, found in bigeminy, admitted, persistent nausea and not eating, weight loss.
According to DC record, sent back to facility for failure to thrive.
Daughter at bedside took pt to GI today Dr. Mcgovern sent pt here for evaluation as noted in above text from him.
Pt denies pain anywhere. Denies feeling SOB. No change in color of stool.
1:30 p.m.
CBC: Hgb 8.6 trending down from past two on 08/16 and 08/17
CMP: Mild hypokalemia (K 3.2) otherwise normal
3:[address] abd/pelvis with po and IV contrast radiology report read: IMPRESSION:
1. ACUTE DEEP VENOUS THROMBOSIS in the LEFT COMMON FEMORAL and FEMORAL VEINS.
2. SEVERE ACUTE CYSTITIS with diffuse urinary bladder wall thickening and mucosal hyperenhancement.
3. Suspected mild acute bilateral pyelonephritis secondary to bilateral ascending urinary tract infection.
4. Bilateral nonobstructing intrarenal calculi.
5. Mild proctocolitis involving the rectum and sigmoid colon.
6. Moderate to severe diverticulosis throughout the sigmoid colon.
7. Severe calcific atherosclerotic plaque in the abdominal aorta.
8. Severe calcific atherosclerotic plaque in the coronary arteries.
9. MULTILEVEL CHRONIC VERTEBRAL BODY ENDPLATE OSTEOPOROTIC INSUFFICIENCY FRACTURES in the lumbar and lower thoracic spine.
10. Severe discogenic degenerative disease at L5/S1.
11. Grade 1 anterolisthesis of L4 on L5 and L5 on S1 secondary to severe facet joint arthrosis.
No sign of sepsis.
Systemic symptoms: anorexia, failure to thrive
Rectal exam heme neg, manually disimpacted moderate amount of hard stool
Risk for MDR: skilled nursing,
Plan: Admit acute cystitis, bilateral pyelonephritis, anemia
*Critical Care Note
Total Time (30-74mins, 75-104mins- exclusive of procedures): Not Applicable
ED Attending Note
-
Portions of this chart may have been created with voice recognition software.� Occasional wrong word or��sound alike� substitutions may have occurred due to the inherent limitations of voice recognition software.
Discharge Plan
Departure
Patient Disposition: Admit
Date of Disposition: 10/20/24
Time of Disposition: 15:14
Admit to: Med/Surg
Presentation/result/management discussed w/ accepting MD/DO: Hospitalist
Condition: Fair
Discharge Problem:
Cystitis, Acute pyelonephritis, Acute deep vein thrombosis (DVT) of femoral vein of left lower extremity, Anemia, Proctocolitis
Interventions
Interventions:
*Risk Screen - Suicide Last Done: 10/20/24 11:00
*General Assessment Last Done: 10/20/24 11:00
*Neglect/Abuse Screening Last Done: 10/20/24 11:00
*ED- Fall Risk Assessment Last Done: 10/20/24 11:45
*ED COVID-19 Vaccine History Last Done: 10/20/24 11:45
*Nursing Disposition Last Done: 10/20/24 16:27
[facility] Assessment Last Done: 10/20/24 11:45
Discharge Date and Time
Discharge Date/Time: 10/20/24 19:34
[2024-10-20 11:53] LABS: % Basophils 0.4 % (0-2); % Eosinophils 0.3 % (0-6); % Immature Granulocytes 0.4 % (0-0.5); % Monocytes 6.7 % (1.7-9.3); % Neutrophils 84.2 % (42.2-75.2); Absolute Lymphocytes 0.6 10^3/uL (1.2-3.4); Absolute Monocytes 0.5 10^3/uL (0.1-0.6); Absolute Neutrophils 6.5 10^3/uL (1.4-6.5); Hematocrit 26.7 % (37.0-47.0); Hemoglobin 8.6 g/dL (12.0-16.0); Mean Corp Hgb Conc. 32.2 g/dL (33.0-37.0); Mean Corpuscular Hgb 29.5 pg (27.0-31.0); Mean Corpuscular Volume 91.4 fL (81.0-99.0); Mean Platelet Volume 10.9 fL (7.4-10.4); Nucleated Red Blood Cells % 0.3 %; Platelet Count 263 10^3/uL (130-400); Red Blood Cell Count 2.92 10^6/uL (4.20-5.40); Red Cell Dist. Width 18.7 % (11.5-14.5); White Blood Cell Count 7.7 10^3/uL (4.8-10.8)
[2024-10-20] MEDS: ZOFRAN 4 MG IV (12:06)
[2024-10-20] MEDS: OMNIPAQUE 50 ML PO (12:06)
[2024-10-20] MEDS: NSS 1000 IV ×2 (12:07→21:36)
[2024-10-20 12:12] LABS: ALT (SGPT) < 10 U/L (0-35); AST (SGOT) 13 U/L (14-36); Albumin 3.7 g/dl (3.5-5.0); Alkaline Phosphatase 71 U/L (38-126); Blood Urea Nitrogen 13 mg/dl (7-17); Calcium 9.3 mg/dl (8.4-10.2); Carbon Dioxide 27 mmol/L (22-30); Chloride 105 mmol/L (98-107); Estimated Creatinine Clearance 57 ml/min; Glucose 104 mg/dl (70-99); Potassium 3.2 mmol/L (3.5-5.1); Sodium 138 mmol/L (135-145); Total Bilirubin 0.9 mg/dl (0.2-1.3); Total Protein 6.3 g/dl (6.3-8.2); eGFR > 60.00
--- NOTE | 2024-10-20 15:36 | HPS.HSE ---
Family Physician
-
Family Physician: Mg Gautam
Chief Complaint
-
mid lower abdominal pain
History of Present Illness
73 yo female w h/o Parkinson, Dementia, PVD, ASCVD, COPD, HTN, HLD, [place], Hyperthyroidism, Depression presented to us with mid abdominal pain associated with nausea for past few days. patient denied vomiting or diarrhea. Denies any headache,
dizziness syncope. Patient denied any fever, chills, chest pain,. Patient has chronic short of breath. Patient denied dysuria hematuria.
Patient was evaluated by GI who recommended ER admission due to poor appetite and weight loss. Patient lost about 20 pounds in [address] with DVT, pyelonephritis and cystitis. Patient received a dose of Eliquis, cefepime, normal saline and Zofran in ER. Admitted for further management
Medical History
Past Medical History
Past Medical History: Reports Other
Additional Past Medical History:
Parkinson's disease
dementia
hyperlipidemia
hyperthyroidism
ASCVD
PVD
essential hypertension
GERD
depression/anxiety
hx UT
Past Surgical History: Reports Other
Additional Past Surgical History:
hysterectomy
cardiac stent x2
Social History
Tobacco: Non-smoker
Alcohol: None
Drug: None
Living: [facility]
Family History
Family History: Not pertinent
Allergies / Home Medications
Allergies reflects when Allergies were last updated in [employer].
Home Medications with original date entered in [employer]
Allergy/Medication List:
Allergies
Allergy/AdvReac Type Severity Reaction Status Date / Time
Penicillins Allergy Mild Rash Verified 10/20/24 10:59
Sulfa (Sulfonamide Allergy Mild Rash Verified 10/20/24 10:59
Antibiotics)
Home Medications
acetaminophen 325 mg tablet 650 mg PO Q4HPRN PRN mild pain/temp>100F 08/16/24
amlodipine 2.5 mg tablet 2.5 mg PO DAILY 08/16/24
aspirin 81 mg chewable tablet 81 mg PO DAILY 08/16/24
atorvastatin 40 mg tablet 40 mg PO HS 08/16/24
bisacodyl 10 mg rectal suppository (Dulcolax (bisacodyl)) 10 mg MO DAILYPRN PRN if mom is ineffective after 24hrs 08/16/24
calcium carbonate (Oyster Shell Calcium 500) 500 mg PO BID 08/16/24
calcium carbonate (Tums) 400 mg PO Q8HPRN PRN indigestion 08/16/24
carbidopa 25 mg-levodopa 100 mg tablet 1.5 tab PO QID 08/16/24
famotidine 20 mg tablet 20 mg PO DAILY 08/16/24
magnesium hydroxide 400 mg/5 mL oral suspension (Milk of Magnesia) 30 ml PO DAILYPRN PRN if no bm x 3 days 08/16/24
methimazole 5 mg tablet 2.5 mg PO DAILY 08/16/24
metoprolol tartrate 25 mg tablet 25 mg PO BID 08/16/24
mirtazapine 15 mg tablet 7.5 mg PO HS 08/16/24
nitroglycerin 0.4 mg sublingual tablet (Nitrostat) 0.4 mg sublingual [id number] PRN chest pain 08/16/24
ondansetron HCl 4 mg tablet 4 mg PO Q6HPRN PRN nausea 08/16/24
pantoprazole 40 mg tablet,delayed release 40 mg PO DAILY 08/16/24
polyethylene glycol 3350 17 gram oral powder packet (Miralax) 17 g PO DAILYPRN PRN constipation 08/16/24
rivastigmine tartrate 1.5 mg capsule 1.5 mg PO BID 08/16/24
sertraline 25 mg tablet 25 mg PO DAILY 08/16/24
simethicone 80 mg chewable tablet 80 mg PO Q6HPRN PRN gas 08/16/24
sodium phosphates 19 gram-7 gram/118 mL enema (Fleet Enema) 118 ml MO DAILYPRN PRN if dulcolax is ineffective after 24hrs 08/16/24
Review of Systems
-
Constitutional: Reports No Symptoms
EENT: Reports No Symptoms
Respiratory: Reports No Symptoms
Cardiac: Reports No Symptoms
Abdomen/GI: Reports Abdominal Pain and Nausea
: Reports No Symptoms
Musculoskeletal: Reports No Symptoms
Skin: Reports No Symptoms
Neurological: Reports No Symptoms
Endocrine: Reports No Symptoms
Hematologic/Lymphatic: Reports No Symptoms
Psych: Reports No Symptoms
Physical Exam
Vital Signs
Vital Signs
Temp Pulse Resp BP Pulse Ox
97.9 F 83 20 131/79 97
10/20/24 15:24 10/20/24 15:24 10/20/24 15:24 10/20/24 15:24 10/20/24 15:24
Physical Exam
General: Well Developed, Well Nourished and No Apparent Distress
HEENT: NormoCephalic, Moist mucous membranes and Atraumatic
Respiratory: Clear
Cardiac: S1/S2 and Regular Rhythm; No Murmur or Rub
GI: Soft, Non Tender, Non Distended and Normal Bowel Sounds; No Organomegaly
Rectal: Deferred by Provider
Musculoskeletal: No Clubbing, No Cyanosis and No Edema
Skin: No Rash
Neuro: AO x 3 and Nonfocal/grossly intact
Psych: Calm
Laboratory Results
-
10/20/24 11:44
10/20/24 11:44
Laboratory Results
Total Bilirubin 0.9 mg/dl (0.2-1.3) 10/20/24 11:44
AST 13 U/L (14-36) L 10/20/24 11:44
ALT < 10 U/L (0-35) 10/20/24 11:44
Alkaline Phosphatase 71 U/L (38-126) 10/20/24 11:44
Data Reviewed
-
CT Scan: Report Reviewed by me
Lab Data: Labs Reviewed by me
Impression/Plan
-
# Left femoral DVT
- CT with impression of ACUTE DEEP VENOUS THROMBOSIS in the LEFT COMMON FEMORAL and FEMORAL VEINS.
- Eliquis continued
# cystitis/early bilateral pyelonephritis
- CT with impression of SEVERE ACUTE CYSTITIS with diffuse urinary bladder wall thickening and mucosal hyperenhancement. Suspected mild acute bilateral pyelonephritis secondary to bilateral ascending urinary tract infection Bilateral
nonobstructing intrarenal calculi.Mild proctocolitis involving the rectum and sigmoid colon. Moderate to severe diverticulosis throughout the sigmoid colon.Severe calcific atherosclerotic plaque in the abdominal aorta. Severe calcific
atherosclerotic plaque in the coronary arteries.MULTILEVEL CHRONIC VERTEBRAL BODY ENDPLATE OSTEOPOROTIC INSUFFICIENCY FRACTURES in the lumbar and lower thoracic spine. Severe discogenic degenerative disease at L5/S1.Grade 1 anterolisthesis of L4 on
L5 and L5 on S1 secondary to severe facet joint arthrosis.
- UA pending
- IV cefepime continued
- Tylenol as needed for fever or pain
# Abdominal pain/poor appetite/weight loss unclear cause
- Will get GI involved
# Anemia of chronic disease
-Hemoglobin stable at 8.6
- No active bleeding
- Continue to monitor
# Hypokalemia likely from poor oral intake
- K3.2
- Oral KCl
- BMP in a.m.
#Parkinson's disease
- continue carbidopa-levodopa
#dementia
- continue rivastigmine
#hyperthyroidism
- continue methimazole
#hyperlipidemia
#ASCVD
#PVD
- continue aspirin and atorvastatin
#essential hypertension
- continue amlodipine, metoprolol
#GERD
- continue famotidine and pantoprazole
#depression/anxiety
- continue mirtazapine and sertraline
#hx [place]
s/p cardiac stent x2
Code status: full code
[2024-10-20] MEDS: MAXIPIME 2000 MG IV (15:40)
[2024-10-20] MEDS: ELIQUIS 10 MG PO (15:40)
[2024-10-20 15:48] LABS: Urine Albumin Negative (Neg - Trace); Urine Bilirubin Negative (Negative); Urine Character Clear (Clear); Urine Color Yellow; Urine Glucose Negative (Negative); Urine Ketone 1+ (Negative); Urine Leukocyte 2+ (Negative); Urine Nitrite Negative (Negative); Urine Occult Blood 3+ (Negative); Urine Specific Gravity 1.005 (<1.030); Urine Urobilinogen Negative (Neg - 1+)
[2024-10-20 15:57] LABS: TSH Reflex To Free T4 3.85 uIU/ml (0.47-4.68)
[2024-10-20] MEDS: KCL ELIXIR 40 MEQ PO (16:11)
[2024-10-20 16:19] LABS: Urine Mucus Few
[2024-10-20 16:20] LABS: Urine Bacteria Few (Negative)
--- NOTE | 2024-10-20 16:27 | EDRN ---
this RN called the receiving unit and notified them that paper report was going to be tubed up
--- NOTE | 2024-10-20 20:00 | PTCARENOTE ---
pt oriented to self, no c/o pain. bed alarm plug in. oriented to room w/ call fermin in [facility].
[2024-10-20] MEDS: SINEMET 25-100 1.5 TABLET PO (20:41)
[2024-10-20] MEDS: REMERON 7.5 MG PO (21:36)
[2024-10-20] MEDS: LIPITOR 40 MG PO (21:39)
[2024-10-20] MEDS: EXELON 1.5 MG PO (21:39)
[2024-10-20] MEDS: LOPRESSOR 25 MG PO (21:39)
[2024-10-20] MEDS: MAXIPIME 1000 MG IV (21:40)
[2024-10-20] MEDS: STERILE WATER FOR INJECTION 10 ML IV (21:41)
[2024-10-20] MEDS: SINEMET 25-100 PO (21:41)
[2024-10-21] MEDS: MAXIPIME 1000 MG IV ×4 (04:02→22:31)
[2024-10-21] MEDS: STERILE WATER FOR INJECTION 10 ML IV ×4 (04:02→22:32)
--- NOTE | 2024-10-21 06:46 | CON.GI ---
Addendum entered and electronically signed by Martin Abdi MD 10/21/24 14:23:
I saw and examined the patient.
The INSURANCE INSTRUCTOR or PA's note was reviewed and I agree with the note.
Comment:
Pt with a hx of dementia, htn, parkinsons with failure to thrive, weight loss. Found to have acute DVT, no obvious Gi abnormality.
abd: soft, NT
impression:
weight loss
failure to thrive
anemia
plan:
EGD/colonoscopy
check b12/tsh/folate/iron studies
follow hgb
v
Addendum entered and electronically signed by ALESSANDRO Mcmillan 10/21/24 11:49:
Pt unable to drink colyte prep will try miralax/Gatorade next
Original Note:
Consultation
-
Date/Time Consultation Requested: 10/20/241939
Date/Time Consultation Performed: 10/21/24 0800
Requesting Provider: ALESSANDRO Vidales
Performing Provider: ALESSANDRO Williamson, Martin Abdi MD
Reason for Consultation: failure to thrive, wt loss
Medical History
Chief Complaint / HPI
Chief Complaint: nausea, abdominal pain
History of Present Illness:
Pt is a 73 y.o female with a past medical history of HTN, HLD, hyperthyroidism, CAD (s/p stents), bradycardia, PVCs, asthma/COPD, Parkinson's disease, dementia, anxiety/depression and acid reflux with new GI patient evaluation 10/20 due to concern for
nausea, trouble eating and profound unintentional weight loss. Pt did have ER evaluation in August with weakness, fatigue, and poor po intakes. She was noted with hbg 9.9 with heme neg stool. Since that visit pt continues to decline with further wt
loss. She was referred back to ER and on CT imaging noted DVT, cystitis, b/l pyelonephritis, mild proctocolitis, diverticulosis, atherosclerosis, osteoporotic fracture, DDD. She is also noted with further drop in hbg to 7.1. Per review with
patient and family noted with decreased appetite. She was recently eating some random items such as pickles or olives but did not eat large meals. She admits to nausea but denies dysphagia, GERD, vomiting, abdominal pain, diarrhea, constiaption
or bleeding. No hx EGD or colonoscopy in past.
Past Medical History
Past Medical History: Asthma, CAD, COPD, GERD, HTN, Hypercholesterolemia, Hyperthyroidism, Psychiatric (dementia, anxiety/depression) and Other (bradicardia, parkinson's )
Past Surgical History: Cardiac (stents)
Social History
Tobacco: Former Smoker
Alcohol: None
Drug: None
Living: Usp
Employment: Retired
Family History
Family History: Other (father CAD, pt denies famly hx GI issues )
Allergies / Home Medications
Allergy/AdvReac Type Severity Reaction Status Date / Time
Penicillins Allergy Rash Verified 10/20/24 20:34
Sulfa (Sulfonamide Allergy Rash Verified 10/20/24 20:34
Antibiotics)
�Medication �Instructions �Recorded
acetaminophen 325 mg tablet 650 mg PO Q4HPRN PRN mild 08/16/24
pain/temp>100F
amlodipine 2.5 mg tablet 2.5 mg PO DAILY Blood Pressure 08/16/24
aspirin 81 mg chewable tablet 81 mg PO DAILY Heart 08/16/24
Disease/Condition
atorvastatin 40 mg tablet 40 mg PO HS High Cholesterol 08/16/24
bisacodyl 10 mg rectal suppository 10 mg FL DAILYPRN PRN if mom is 08/16/24
(Dulcolax (bisacodyl)) ineffective after 24hrs
calcium carbonate (Tums) 400 mg PO Q8HPRN PRN indigestion 08/16/24
carbidopa 25 mg-levodopa 100 mg 1.5 tab PO QID Neurological 08/16/24
tablet Condition
famotidine 20 mg tablet 20 mg PO DAILY Gastrointestinal 08/16/24
Issue
methimazole 5 mg tablet 2.5 mg PO DAILY Thyroid 08/16/24
metoprolol tartrate 25 mg tablet 25 mg PO BID Blood Pressure 08/16/24
nitroglycerin 0.4 mg sublingual 0.4 mg sublingual [id number] PRN 08/16/24
tablet (Nitrostat) chest pain
ondansetron HCl 4 mg tablet 4 mg PO Q6HPRN PRN nausea 08/16/24
pantoprazole 40 mg tablet,delayed 40 mg PO DAILY Gastrointestinal 08/16/24
release Issue
simethicone 80 mg chewable tablet 80 mg PO Q6HPRN PRN gas 08/16/24
sodium phosphates 19 gram-7 118 ml FL DAILYPRN PRN if dulcolax 08/16/24
gram/118 mL enema (Fleet Enema) is ineffective after 24hrs
calcium carbonate (Oyster Shell 500 mg PO BID Supplement 10/20/24
Calcium)
magnesium hydroxide 400 mg/5 mL 30 ml PO DAILY PRN CONSTIPATION 10/20/24
oral suspension (Milk of Magnesia)
mirtazapine 30 mg tablet 30 mg PO HS Neurological Condition 10/20/24
polyethylene glycol 3350 17 gram 17 g PO DAILYPRN PRN CONSTIPATION 10/20/24
oral powder packet (Miralax)
rivastigmine tartrate 3 mg capsule 3 mg PO BID Neurological Condition 10/20/24
sertraline 25 mg tablet (Zoloft) 75 mg PO DAILY Mental 10/20/24
Health/Anxiety
Review of Systems
-
Unable to obtain full review of systems at this time due to: Other (forgetful but family assist )
History Source: Patient and Family
Constitutional: Reports Weight Loss and Fatigue
EENT: Reports No Symptoms
Respiratory: Reports No Symptoms
Cardiac: Reports No Symptoms
Abdomen/GI: Reports Nausea and Other (decreased appetite )
: Reports No Symptoms
Musculoskeletal: Reports No Symptoms
Skin: Reports No Symptoms
Neurological: Reports Weakness
Endocrine: Reports No Symptoms
Hematologic/Lymphatic: Reports No Symptoms
Vital Signs
Temp Pulse Resp BP Pulse Ox
97.7 F 61 18 116/55 97
10/20/24 23:30 10/20/24 23:30 10/20/24 23:30 10/20/24 23:30 10/20/24 23:30
Physical Exam
Exam
General: Other (pale, thin appearing )
HEENT: Normocephalic and Anicteric
Respiratory: Clear
Cardiac: Regular Rhythm
GI: Soft, Non Tender and Non Distended
Musculoskeletal: No Clubbing and No Cyanosis
Skin: Warm and Dry
Neuro: Awake, Alert and Other (confused at times )
Psych: Calm
Results
WBC 7.7 10^3/uL (4.8-10.8) 10/20/24 11:44
Hgb 8.6 g/dL (12.0-16.0) L 10/20/24 11:44
Hct 26.7 % (37.0-47.0) L 10/20/24 11:44
MCV 91.4 fL (81.0-99.0) 10/20/24 11:44
Plt Count 263 10^3/uL (130-400) 10/20/24 11:44
Absolute Neuts (auto) 6.5 10^3/uL (1.4-6.5) 10/20/24 11:44
Sodium 138 mmol/L (135-145) 10/20/24 11:44
Potassium 3.2 mmol/L (3.5-5.1) L 10/20/24 11:44
Chloride 105 mmol/L (98-107) 10/20/24 11:44
Carbon Dioxide 27 mmol/L (22-30) 10/20/24 11:44
BUN 13 mg/dl (7-17) 10/20/24 11:44
Creatinine 0.5 mg/dL (0.6-1.0) L 10/20/24 11:44
Calcium 9.3 mg/dl (8.4-10.2) 10/20/24 11:44
Total Bilirubin 0.9 mg/dl (0.2-1.3) 10/20/24 11:44
AST 13 U/L (14-36) L 10/20/24 11:44
ALT < 10 U/L (0-35) 10/20/24 11:44
Alkaline Phosphatase 71 U/L (38-126) 10/20/24 11:44
Diagnostic Image Results:
10/20/24 CT Abd/pel W Iv And Oral Contr
1. ACUTE DEEP VENOUS THROMBOSIS in the LEFT COMMON FEMORAL and FEMORAL VEINS.
2. SEVERE ACUTE CYSTITIS with diffuse urinary bladder wall thickening and mucosal hyperenhancement.
3. Suspected mild acute bilateral pyelonephritis secondary to bilateral ascending urinary tract infection.
4. Bilateral nonobstructing intrarenal calculi.
5. Mild proctocolitis involving the rectum and sigmoid colon.
6. Moderate to severe diverticulosis throughout the sigmoid colon.
7. Severe calcific atherosclerotic plaque in the abdominal aorta.
8. Severe calcific atherosclerotic plaque in the coronary arteries.
9. MULTILEVEL CHRONIC VERTEBRAL BODY ENDPLATE OSTEOPOROTIC INSUFFICIENCY FRACTURES in the lumbar and lower thoracic spine.
10. Severe discogenic degenerative disease at L5/S1.
11. Grade 1 anterolisthesis of L4 on L5 and L5 on S1 secondary to severe facet joint arthrosis.
Prior GI Procedures:
EGD: none
Colonoscopy: none
Assessment / Plan
-
Pt is a 73 y.o female with a past medical history of HTN, HLD, hyperthyroidism, CAD (s/p stents), bradycardia, PVCs, asthma/COPD, Parkinson's disease, dementia, anxiety/depression and acid reflux with new GI patient evaluation 10/20 due to concern for
nausea, trouble eating and profound unintentional weight loss. Pt did have ER evaluation in August with weakness, fatigue, and poor po intakes. She was noted with hbg 9.9 with heme neg stool. Since that visit pt continues to decline with further wt
loss. She was referred back to ER and on CT imaging noted DVT, cystitis, b/l pyelonephritis, mild proctocolitis, diverticulosis, atherosclerosis, osteoporotic fracture, DDD. She is also noted with further drop in hbg to 7.1. Per review with
patient and family noted with decreased appetite. She was recently eating some random items such as pickles or olives but did not eat large meals. She admits to nausea but denies dysphagia, GERD, vomiting, abdominal pain, diarrhea, constipation
or bleeding. No hx EGD or colonoscopy in past.
-symptomatic anemia
-wt loss
-nausea
-failure to thrive
-CT with new DVT
-mild proctocolitis
-Ct with b/l pyelonephritis
-osteoporotic fracture/DDD
other med problems:
-HTN
-HLD
-hyperthyroidism on Methimazole TSH 3.85
-CAD (s/p stents)
- bradycardia,
-PVCs
-asthma/COPD
-Parkinson's disease
-dementia, anxiety/depression
-acid reflux
PLAN:
etiology of failure to thrive and anemia related to new DVT, cystitis/UTI vs underlying GI issue with nausea, decreased appetite
reviewed with patient and daughter further drop in hbg since admission they are agreeable for EGD/colon and aware pt may not prep well
plan for conversion to IV heparin and stop Eliquis
trend hbg
for transfusion
add iron studies/B12/folate
add INR for am with poor nutrition to ensure stable
clear diet
2 day prep as tolerated
replete K
cont abx for possible UTI- cx pending
reviewed with hospitalist and nursing staff via tiger text
-
-
Thank you for consultation and allowing me to participate in the patient's care. Please call the donor relations manager GI physician during the after hours with any questions or concerns.
[2024-10-21 07:04] LABS: Hematocrit 22.1 % (37.0-47.0); Hemoglobin 7.1 g/dL (12.0-16.0); Mean Corp Hgb Conc. 32.1 g/dL (33.0-37.0); Mean Corpuscular Hgb 29.3 pg (27.0-31.0); Mean Corpuscular Volume 91.3 fL (81.0-99.0); Mean Platelet Volume 11.1 fL (7.4-10.4); Platelet Count 222 10^3/uL (130-400); Red Blood Cell Count 2.42 10^6/uL (4.20-5.40); Red Cell Dist. Width 18.9 % (11.5-14.5); White Blood Cell Count 7.6 10^3/uL (4.8-10.8)
[2024-10-21 07:38] LABS: Blood Urea Nitrogen 7 mg/dl (7-17); Calcium 8.1 mg/dl (8.4-10.2); Carbon Dioxide 25 mmol/L (22-30); Chloride 108 mmol/L (98-107); Estimated Creatinine Clearance 57 ml/min; Glucose 71 mg/dl (70-99); Potassium 3.2 mmol/L (3.5-5.1); Sodium 137 mmol/L (135-145); eGFR > 60.00
[2024-10-21 08:10] VITALS: BP 119/73
[2024-10-21 08:28] LABS: Hematocrit 22.1 % (37.0-47.0); Hemoglobin 7.4 g/dL (12.0-16.0); Mean Corp Hgb Conc. 33.5 g/dL (33.0-37.0); Mean Corpuscular Hgb 30.1 pg (27.0-31.0); Mean Corpuscular Volume 89.8 fL (81.0-99.0); Mean Platelet Volume 10.7 fL (7.4-10.4); Platelet Count 237 10^3/uL (130-400); Red Blood Cell Count 2.46 10^6/uL (4.20-5.40); Red Cell Dist. Width 18.6 % (11.5-14.5)
[2024-10-21 08:39] LABS: APTT 29.3 Sec (23.4-35.0)
[2024-10-21 08:59] LABS: Iron 106 ug/dl (37-170)
[2024-10-21 09:08] LABS: Percent Saturation 66 % (20-50); Total Iron Binding Capacity 160 ug/dl (265-497)
[2024-10-21] MEDS: TAPAZOLE 2.5 MG PO (09:42)
[2024-10-21] MEDS: ZOLOFT 25 MG PO (09:42)
[2024-10-21] MEDS: SINEMET 25-100 1.5 TABLET PO ×4 (09:42→21:25)
[2024-10-21] MEDS: LOW STRENGTH ASPIRIN 81 MG PO (09:42)
[2024-10-21] MEDS: LOPRESSOR 25 MG PO ×2 (09:42→20:50)
[2024-10-21] MEDS: NORVASC 2.5 MG PO (09:43)
[2024-10-21] MEDS: EXELON 1.5 MG PO ×2 (09:43→20:51)
[2024-10-21] MEDS: PEPCID 20 MG PO (09:43)
[2024-10-21] MEDS: PROTONIX 40 MG PO (09:43)
[2024-10-21] MEDS: HEPARIN 25000 UNITS/250 ML IV (10:05)
[2024-10-21 10:07] LABS: Folate 1.5 ng/ml (2.76-20); Vitamin B12 263 pg/ml (239-931)
[2024-10-21] MEDS: NULYTELY SOLUTION 2 LITERS PO (10:13)
[2024-10-21] MEDS: KCL 40 MEQ PO (10:44)
[2024-10-21 10:56] VITALS: BP 125/64
--- NOTE | 2024-10-21 10:59 | CM ---
CM spoke with ABI Arechiga at [facility] [phone] and told pt is an assist of 1 for transfers and adl's. Often refuses to get OOB. Currently being skilled for speech.
Non-urgent VM left for daughter Jenna at [phone] requesting callback.
PT eval pending.
Discharge dispo-return to [facility].
[2024-10-21 11:16] VITALS: BP 122/62
--- NOTE | 2024-10-21 11:40 | PTCARENOTE ---
Discussed with GI, pt. refusing to drink colyte. GI to change prep to Miralax. Will continue to encourage pt. to drink prep.
--- NOTE | 2024-10-21 12:26 | W.PN.HOSP.TC ---
Today's Communication/Plan
-
Assessment / Plan
Assessment / Plan
General: No Apparent Distress, Comfortable and Conversant
HEENT: NormoCephalic, Moist mucous membranes, Atraumatic
Respiratory: Clear and Non Labored Respirations
Cardiac: S1/S2 and Regular Rhythm; No Rub or Gallop
GI: Soft, Non Tender, Non Distended and Normal Bowel Sounds
Musculoskeletal: No Edema, no deformity, decreased muscle bulk throughout
Skin: Warm and dry, pale
: NO Gallo
Neuro: Awake, Alert, forgetful
Psych: Calm and Intact Judgment/Insight
Ms. Rivera is a 73-year-old female with a medical history of CAD (stents x 2), Parkinson's dementia, uterine cancer (status post JODI), and hypothyroidism who presented with vague abdominal pain and nausea for the past few days. Her daughter also
reports significant weight loss of approximately 20 pounds in the past 4 weeks. Outpatient workup has been ongoing, including a GI office visit today at which point it was recommended she go to the emergency department for further evaluation and
management. In the ED she was hemodynamically stable. However CT imaging of her abdomen and pelvis with IV and oral contrast revealed severe acute cystitis with suspected bilateral pyelonephritis in addition to acute left common femoral DVT and
mild proctocolitis. She was given IV fluids, started on antibiotics, and anticoagulated with Eliquis. She has been admitted for further evaluation and management.
Significant weight loss:
- Daughter reports 20 pound weight loss over the past 4 weeks
- CT imaging showing mild proctocolitis and the acute cystitis with bladder wall thickening
- UA shows RBCs with few WBCs and bacteria, urine culture growing gram-negative bacilli
- Hemoglobin dropped to 7.1 this morning from 8.6 on initial labs yesterday, transfusing 1 unit PRBCs, consent obtained
- Clinical picture suspicious for malignancy especially considering finding of acute DVT, workup ongoing
- GI following, bowel prep over the weekend with planned upper and lower endoscopy on [place] 6/9 after Eliquis washout
- Follow-up CEA
Anemia requiring transfusion:
- Globin dropped from 8.6-7.1, likely partially dilutional after IV fluids
- Transfusing 1 unit PRBCs
- Planning upper and lower endoscopy on 10/23
- Monitor for brisk bleeding and transfuse further as needed
- Remains hemodynamically stable
Cystitis with suspected pyelonephritis:
- Continue antibiotics with cefepime
- Urine cultures growing gram-negative rods, will follow-up for speciation and sensitivity
- Malignancy workup ongoing
Acute DVT:
- Left common femoral vein
- Transitioned anticoagulation to IV heparin for now and holding Eliquis pending endoscopy
- Malignancy workup ongoing
Hypokalemia:
- Potassium 3.2, replete and continue to monitor
DVT prophylaxis: IV heparin drip
CODE STATUS: Full code
Total time spent on today's encounter was 40 minutes.
Anticipated Discharge: > 48 hours
Subjective/Interval History
-
Date of Service: October 21, 2024
Patient was seen and examined at bedside this morning. She is being transfused a unit PRBCs this morning for hemoglobin drop to 7.1. GI planning upper and lower endoscopy on Wednesday.
Objective Data
-
Labs:
Laboratory Results
10/21/24 10/21/24 10/21/24
05:51 08:20 16:00
WBC 7.6 8.0
Hgb 7.1 L 7.4 L
Hct 22.1 L 22.1 L
Plt Count 222 237
APTT 29.3 Pending
Sodium 137
Potassium 3.2 L
Chloride 108 H
Carbon Dioxide 25
BUN 7
Creatinine 0.4 L
Glucose 71
Calcium 8.1 L
Vital Signs:
Vital Signs
Temp Pulse Resp BP Pulse Ox
98.0 F 59 16 122/62 95
10/21/24 11:16 10/21/24 11:16 10/21/24 11:16 10/21/24 11:16 10/21/24 08:55
I&O
10/20/24 10/21/24 10/22/24
06:59 06:59 06:59
Intake Total 800 / 800 0 / 0
Balance 800 / 800 0 / 0
Review of Systems
-
History Source: Patient
All other systems: Reviewed and negative
Constitutional: Reports Weakness
Physical Exam
-
General: Comfortable and Appears Chronically Ill
[2024-10-21 13:10] VITALS: BP 138/59
[2024-10-21] MEDS: FOLVITE 50.2 MG IV (13:14)
[2024-10-21] MEDS: GAVILAX 120 GM PO (13:23)
[2024-10-21] MEDS: NSS 1000 IV (13:23)
[2024-10-21] MEDS: KCL 270 MEQ IV (13:32)
[2024-10-21 15:52] VITALS: BP 115/75
[2024-10-21 16:27] LABS: APTT 123.2 Sec (23.4-35.0)
[2024-10-21] MEDS: REMERON 7.5 MG PO (21:25)
[2024-10-21] MEDS: LIPITOR 40 MG PO (21:28)
[2024-10-21 23:13] LABS: Hematocrit 29.7 % (37.0-47.0); Hemoglobin 10.1 g/dL (12.0-16.0)
[2024-10-21 23:30] VITALS: BP 132/70
[2024-10-21 23:36] LABS: APTT 118.3 Sec (23.4-35.0)
[2024-10-22] MEDS: MAXIPIME 1000 MG IV ×4 (04:46→21:57)
[2024-10-22] MEDS: NSS 1000 IV ×2 (04:47→21:54)
[2024-10-22] MEDS: STERILE WATER FOR INJECTION 10 ML IV ×4 (04:47→21:57)
[2024-10-22 06:49] LABS: APTT 96.3 Sec (23.4-35.0)
[2024-10-22 07:00] LABS: Hematocrit 25.8 % (37.0-47.0); Hemoglobin 8.9 g/dL (12.0-16.0); Mean Corp Hgb Conc. 34.5 g/dL (33.0-37.0); Mean Corpuscular Hgb 29.5 pg (27.0-31.0); Mean Corpuscular Volume 85.4 fL (81.0-99.0); Mean Platelet Volume 11.3 fL (7.4-10.4); Platelet Count 198 10^3/uL (130-400); Red Blood Cell Count 3.02 10^6/uL (4.20-5.40); Red Cell Dist. Width 18.4 % (11.5-14.5); White Blood Cell Count 7.8 10^3/uL (4.8-10.8)
[2024-10-22 07:07] LABS: Blood Urea Nitrogen 5 mg/dl (7-17); Calcium 8.1 mg/dl (8.4-10.2); Carbon Dioxide 25 mmol/L (22-30); Chloride 106 mmol/L (98-107); Estimated Creatinine Clearance 57 ml/min; Glucose 81 mg/dl (70-99); Potassium 3.3 mmol/L (3.5-5.1); Sodium 134 mmol/L (135-145); eGFR > 60.00
[2024-10-22 07:30] VITALS: BP 138/64
[2024-10-22 08:15] LABS: INR 1.26; PT 16.1 Sec (11.4-14.6)
[2024-10-22] MEDS: PROTONIX 40 MG PO (08:47)
[2024-10-22] MEDS: EXELON 1.5 MG PO ×2 (08:47→20:30)
[2024-10-22] MEDS: TAPAZOLE 2.5 MG PO (08:48)
[2024-10-22] MEDS: NORVASC 2.5 MG PO (08:48)
[2024-10-22] MEDS: LOW STRENGTH ASPIRIN 81 MG PO (08:48)
[2024-10-22] MEDS: LOPRESSOR 25 MG PO ×2 (08:48→20:26)
[2024-10-22] MEDS: ZOLOFT 25 MG PO (08:48)
[2024-10-22] MEDS: PEPCID 20 MG PO (08:48)
[2024-10-22] MEDS: SINEMET 25-100 1.5 TABLET PO ×4 (08:48→20:27)
[2024-10-22] MEDS: KCL 270 MEQ IV (09:01)
--- NOTE | 2024-10-22 11:49 | W.PN.GI.CBS2 ---
Today's Communication / Plan
-
EGD +/- colonoscopy
Assessment / Plan
-
Pt is a 73 y.o female with a past medical history of HTN, HLD, hyperthyroidism, CAD (s/p stents), bradycardia, PVCs, asthma/COPD, Parkinson's disease, dementia, anxiety/depression and acid reflux with new GI patient evaluation 10/20 due to concern for
nausea, trouble eating and profound unintentional weight loss. Pt did have ER evaluation in August with weakness, fatigue, and poor po intakes. She was noted with hbg 9.9 with heme neg stool. Since that visit pt continues to decline with further wt
loss. She was referred back to ER and on CT imaging noted DVT, cystitis, b/l pyelonephritis, mild proctocolitis, diverticulosis, atherosclerosis, osteoporotic fracture, DDD. She is also noted with further drop in hbg to 7.1. Per review with
patient and family noted with decreased appetite. She was recently eating some random items such as pickles or olives but did not eat large meals. She admits to nausea but denies dysphagia, GERD, vomiting, abdominal pain, diarrhea, constipation
or bleeding. No hx EGD or colonoscopy in past.
-symptomatic anemia
-wt loss
-nausea
-failure to thrive
-CT with new DVT
-mild proctocolitis
-Ct with b/l pyelonephritis
-osteoporotic fracture/DDD
other med problems:
-HTN
-HLD
-hyperthyroidism on Methimazole TSH 3.85
-CAD (s/p stents)
- bradycardia,
-PVCs
-asthma/COPD
-Parkinson's disease
-dementia, anxiety/depression
-acid reflux
Plan:
EGD +/- colonoscopy tomorrow (likely not to prep but would proceed with egd regardless as low normal b12 and low folate, will r/o malabsorptive process)
await CEA
clears
Subjective
Subjective
Date of Service: October 22, 2024
Pt having a hard time with prep, drank 2 cups per nurse
Objective
Data Reviewed
Laboratory Data:
Laboratory Results
10/22/24 06:10
10/22/24 06:10
Laboratory Results
PT 16.1 Sec (11.4-14.6) H 10/22/24 06:10
INR 1.26 10/22/24 06:10
APTT 96.3 Sec (23.4-35.0) H 10/22/24 06:10
Total Bilirubin 0.9 mg/dl (0.2-1.3) 10/20/24 11:44
AST 13 U/L (14-36) L 10/20/24 11:44
ALT < 10 U/L (0-35) 10/20/24 11:44
Alkaline Phosphatase 71 U/L (38-126) 10/20/24 11:44
Vital Signs and I&O:
Vital Signs
Temp Pulse Resp BP Pulse Ox
98.3 F 61 18 138/64 98
10/22/24 07:30 10/22/24 08:48 10/22/24 07:30 10/22/24 08:48 10/22/24 08:45
I&O
10/21/24 10/22/24 10/23/24
06:59 06:59 06:59
Intake Total 800 / 800 3890 / 3890
Balance 800 / 800 3890 / 3890
Physical Exam
Physical Exam
GI: Soft and Non Distended
--- NOTE | 2024-10-22 11:58 | W.PN.HOSP.TC ---
Today's Communication/Plan
-
Assessment / Plan
Assessment / Plan
General: No Apparent Distress, Comfortable
HEENT: NormoCephalic, Moist mucous membranes, Atraumatic
Respiratory: Clear and Non Labored Respirations
Cardiac: S1/S2 and Regular Rhythm; No Rub or Gallop
GI: Soft, Non Tender, Non Distended and Normal Bowel Sounds
Musculoskeletal: No Edema, no deformity, decreased muscle bulk throughout
Skin: Warm and dry, pale
: NO Gallo
Neuro: Awake, Alert, forgetful
Psych: Anxious
Ms. Rivera is a 73-year-old female with a medical history of CAD (stents x 2), Parkinson's dementia, uterine cancer (status post JODI), and hypothyroidism who presented with vague abdominal pain and nausea for the past few days. Her daughter also
reports significant weight loss of approximately 20 pounds in the past 4 weeks. Outpatient workup has been ongoing, including a GI office visit today at which point it was recommended she go to the emergency department for further evaluation and
management. In the ED she was hemodynamically stable. However CT imaging of her abdomen and pelvis with IV and oral contrast revealed severe acute cystitis with suspected bilateral pyelonephritis in addition to acute left common femoral DVT and
mild proctocolitis. She was given IV fluids, started on antibiotics, and anticoagulated with Eliquis. She has been admitted for further evaluation and management.
Significant weight loss:
- Daughter reports 20 pound weight loss over the past 4 weeks
- CT imaging showing mild proctocolitis and the acute cystitis with bladder wall thickening
- UA shows RBCs with few WBCs and bacteria, urine culture growing MDR Proteus susceptible to cefepime
- Hemoglobin dropped to yesterday morning 7.1 and so was transfused 1 unit PRBCs, hemoglobin 8.9 on labs this morning
- Clinical picture suspicious for malignancy especially considering finding of acute DVT, workup ongoing
- GI following, bowel prep over the weekend with planned upper and lower endoscopy on Monday 10/23 after Eliquis washout
- Follow-up CEA
Anemia requiring transfusion:
- Hemoglobin dropped from 8.6-7.1, likely partially dilutional after IV fluids
- Transfused 1 unit PRBCs, hemoglobin 8.9 this morning
- Planning upper and lower endoscopy tomorrow 10/23
- Monitor for brisk bleeding and transfuse further as needed
- Remains hemodynamically stable
Cystitis with suspected pyelonephritis:
- Urine cultures growing MDR Proteus, continuing cefepime
- Malignancy workup ongoing
Acute DVT:
- Left common femoral vein
- Transitioned anticoagulation to IV heparin for now and holding Eliquis pending endoscopy
- Malignancy workup ongoing
Hypokalemia:
- Potassium 3.3, replete and continue to monitor
DVT prophylaxis: IV heparin drip
CODE STATUS: Full code
Total time spent on today's encounter was 40 minutes.
Anticipated Discharge: > 48 hours
Subjective/Interval History
-
Date of Service: October 22, 2024
Patient was seen and examined at bedside this morning. Was slightly agitated and not taking her morning medications. We agreed to try again later.
Objective Data
-
Labs:
Laboratory Results
10/22/24 10/22/24
06:10 12:10
WBC 7.8
Hgb 8.9 L
Hct 25.8 L
Plt Count 198
PT 16.1 H
INR 1.26
APTT 96.3 H Pending
Sodium 134 L
Potassium 3.3 L
Chloride 106
Carbon Dioxide 25
BUN 5 L
Creatinine 0.3 L
Glucose 81
Calcium 8.1 L
Vital Signs:
Vital Signs
Temp Pulse Resp BP Pulse Ox
98.3 F 61 18 138/64 98
10/22/24 07:30 10/22/24 08:48 10/22/24 07:30 10/22/24 08:48 10/22/24 08:45
I&O
10/21/24 10/22/24 10/23/24
06:59 06:59 06:59
Intake Total 800 / 800 3890 / 3890
Balance 800 / 800 3890 / 3890
Review of Systems
-
Unable to obtain full review of systems at this time due to: Dementia
History Source: Patient
All other systems: Reviewed and negative
Physical Exam
-
General: No Apparent Distress
[2024-10-22 12:56] LABS: APTT 135.2 Sec (23.4-35.0)
[2024-10-22] MEDS: FOLVITE 50.2 MG IV (13:15)
[2024-10-22 15:12] VITALS: BMI 18.2
[2024-10-22 15:40] VITALS: BP 136/74
[2024-10-22] MEDS: MIRALAX PO (17:09)
[2024-10-22] MEDS: MIRALAX 51 GRAMS PO ×2 (18:13→20:25)
[2024-10-22 19:36] LABS: APTT 69.4 Sec (23.4-35.0)
[2024-10-22] MEDS: HEPARIN 1700 UNITS IV (19:59)
[2024-10-22] MEDS: HEPARIN 25000 UNITS/250 ML IV (20:07)
[2024-10-22] MEDS: REMERON 7.5 MG PO (20:29)
[2024-10-22] MEDS: LIPITOR 40 MG PO (20:30)
[2024-10-22 23:45] VITALS: BP 150/66
[2024-10-23] VITALS (12 sets, daily range): BP systolic 86–149; BP diastolic 45–93; BMI 18.3
[2024-10-23] MEDS: STERILE WATER FOR INJECTION 10 ML IV ×2 (03:50→12:57)
[2024-10-23] MEDS: MAXIPIME 1000 MG IV (03:51)
[2024-10-23 04:16] LABS: APTT > 200.00 Sec (23.4-35.0)
--- NOTE | 2024-10-23 05:57 | W.PN.HOSP.TC ---
Addendum entered and electronically signed by Kai Torres MD 10/23/24 21:28:
Severe protein calorie malnutrition
Original Note:
Today's Communication/Plan
-
CT head, CTA Head/neck
holding hep gtt pending imaging results as above,
Keppra load
transfer to IMU for closer monitoring
replete lytes
Speech eval
sz/aspiration precautions
EEG
Assessment / Plan
Assessment / Plan
General: No Apparent Distress, appearsComfortable
HEENT: NormoCephalic, Moist mucous membranes, Atraumatic
Respiratory: Clear and Non Labored Respirations
Cardiac: S1/S2 and Regular Rhythm; No Rub or Gallop
GI: Soft, Non Tender, Non Distended and Normal Bowel Sounds
Musculoskeletal: No Edema, no deformity, decreased muscle bulk throughout
Skin: Warm and dry, pale
Neuro: Lethargic but arousable following simple commands and questions but to a limited extent, post-ictal but slowly improving, no significant rigidity noted extremities on passive motion
Psych: Calm
Ms. Rivera is a 73-year-old female with a medical history of CAD (stents x 2), Parkinson's dementia, uterine cancer (status post JODI), and hypothyroidism who presented with vague abdominal pain and nausea for the past few days. Her daughter also
reports significant weight loss of approximately 20 pounds in the past 4 weeks. Outpatient workup has been ongoing, including a GI office visit today at which point it was recommended she go to the emergency department for further evaluation and
management. In the ED she was hemodynamically stable. However CT imaging of her abdomen and pelvis with IV and oral contrast revealed severe acute cystitis with suspected bilateral pyelonephritis in addition to acute left common femoral DVT and
mild proctocolitis. She was given IV fluids, started on antibiotics, and anticoagulated with Eliquis. She has been admitted for further evaluation and management.
10/23/24 New onset sz episode, described as right gaze deviation with de-corticate positioning lasting for a few min, self-aborted
-confirmed with Daughter Ashley, patient has never had a seizure before
-holding hep gtt and checking CT head CTA head/neck
-transferring to IMU for closer monitoring
-neuro eval requested
-started on keppra as per discussion with neurology
-EEG ordered
-aspiration/sz precautions
-speech eval
Hypokalemia/Hypomagnesemia/Hypophosphatemia
monitor and replete as necessary
Significant weight loss:
- Daughter reports 20 pound weight loss over the past 4 weeks
- CT imaging showing mild proctocolitis and the acute cystitis with bladder wall thickening
- UA shows RBCs with few WBCs and bacteria, urine culture growing MDR Proteus susceptible to cefepime
- Hemoglobin dropped to yesterday morning 7.1 and so was transfused 1 unit PRBCs, hemoglobin 8.9 on labs this morning
- Clinical picture suspicious for malignancy especially considering finding of acute DVT, workup ongoing
- GI following, bowel prep over the weekend with planned upper and lower endoscopy on Monday 10/23 after Eliquis washout, procedure canceled d/t new onset sz as above
- Follow-up CEA result pending
Anemia requiring transfusion:
- Hemoglobin dropped from 8.6-7.1, likely partially dilutional after IV fluids
- Transfused 1 unit PRBCs, hemoglobin 8.9 this morning
- Planed upper and lower GI scope on hold d/t new onset sz as above
- Monitor for brisk bleeding and transfuse further as needed
- Remains hemodynamically stable
Cystitis with suspected pyelonephritis:
- Urine cultures growing MDR Proteus, continuing cefepime
- Malignancy workup ongoing
Acute DVT:
- Left common femoral vein
- Transitioned anticoagulation to IV heparin for now and holding Eliquis pending endoscopy. Hep gtt on hold pending CT imaging as above
- Malignancy workup ongoing
DVT prophylaxis: IV heparin drip holding for CT imaging as above, to be resumed if no bleeding noted
CODE STATUS: Full code
Updated daughter Ashley
I spent a total of 60 minutes with the patient or on the floor. More than 50% of this time involved counseling and coordination of care.
Anticipated Discharge: > 48 hours
Subjective/Interval History
-
Date of Service: October 23, 2024
Rapid response this morning new onset sz episode lasting few minutes, self-aborted, witnessed by RN gaze deviation to right with decorticate posturing. Prior to event patient was conversant baseline oriented to self only. Seen and examined at
bedside while post-ictal, vital signs stable, patient gradually improving, following simply commands and responding to questions to an extent.
Objective Data
-
Labs:
Laboratory Results
10/22/24 10/23/24 10/23/24
19:18 02:15 03:28
WBC
Hgb
Hct
Plt Count
APTT 69.4 H Cancelled > 200.00 H*
Sodium
Potassium
Chloride
Carbon Dioxide
BUN
Creatinine
Glucose
Calcium
10/23/24
05:32
WBC Pending
Hgb Pending
Hct Pending
Plt Count Pending
APTT Pending
Sodium Pending
Potassium Pending
Chloride Pending
Carbon Dioxide Pending
BUN Pending
Creatinine Pending
Glucose Pending
Calcium Pending
Vital Signs:
Vital Signs
Temp Pulse Resp BP Pulse Ox
97.3 F 62 20 150/66 96
10/22/24 23:45 10/22/24 23:45 10/22/24 23:45 10/22/24 23:45 10/22/24 23:45
I&O
10/21/24 10/22/24 10/23/24
06:59 06:59 06:59
Intake Total 800 / 800 3890 / 3890 445 / 445
Balance 800 / 800 9696 / 8960 392 / 275
[2024-10-23 06:54] LABS: Hematocrit 25.5 % (37.0-47.0); Hemoglobin 8.8 g/dL (12.0-16.0); Mean Corp Hgb Conc. 34.5 g/dL (33.0-37.0); Mean Corpuscular Hgb 29.7 pg (27.0-31.0); Mean Corpuscular Volume 86.1 fL (81.0-99.0); Mean Platelet Volume 11.3 fL (7.4-10.4); Platelet Count 199 10^3/uL (130-400); Red Blood Cell Count 2.96 10^6/uL (4.20-5.40); Red Cell Dist. Width 18.3 % (11.5-14.5); White Blood Cell Count 5.8 10^3/uL (4.8-10.8)
[2024-10-23 07:02] LABS: Blood Urea Nitrogen 4 mg/dl (7-17); Calcium 8.2 mg/dl (8.4-10.2); Carbon Dioxide 23 mmol/L (22-30); Chloride 107 mmol/L (98-107); Estimated Creatinine Clearance 57 ml/min; Glucose 91 mg/dl (70-99); Potassium 2.8 mmol/L (3.5-5.1); Sodium 134 mmol/L (135-145); eGFR > 60.00
[2024-10-23] MEDS: KCL 270 MEQ IV (08:25)
[2024-10-23] MEDS: LR 1000 IV (08:25)
--- NOTE | 2024-10-23 08:30 | PTCARENOTE ---
entered room to assess patient and hang LR and potassium, pt initially answering questions with one or two words, oriented to self, stated she was tired when asked how she felt. pt then became acutely unresponsive, with decorticate posturing eyes
deviating to the left and shaking and agonal breathing for approximately 30 seconds. pt then very drowsy but arousable. rapid response called. pt placed on tele- NSR. vitals obtained. blood sugar 76. dr Torres notified, came to bedside. order for CT
ordered and order to transfer to IMU.
[2024-10-23 08:33] LABS: Glucose - Point of Care 76 mg/dl (70-99)
[2024-10-23 08:40] LABS: Magnesium 1.5 mg/dl (1.6-2.3); Phosphorus 2.3 mg/dl (2.5-4.5)
--- NOTE | 2024-10-23 08:46 | RR ---
A Rapid Response was called on this patient, please see Rapid Response form.
[2024-10-23] MEDS: MAGNESIUM SULFATE 100 IV (09:36)
[2024-10-23] MEDS: KEPPRA 30 MG IV (09:56)
[2024-10-23] MEDS: EXELON PO ×2 (10:10→21:20)
[2024-10-23] MEDS: LOPRESSOR PO ×2 (10:11→19:41)
[2024-10-23] MEDS: PEPCID PO (10:11)
[2024-10-23] MEDS: NORVASC PO (10:11)
[2024-10-23] MEDS: LOW STRENGTH ASPIRIN PO (10:11)
[2024-10-23] MEDS: TAPAZOLE PO (10:12)
[2024-10-23] MEDS: SINEMET 25-100 PO ×3 (10:12→17:39)
[2024-10-23] MEDS: PROTONIX PO (10:12)
[2024-10-23] MEDS: ZOLOFT PO (10:12)
--- NOTE | 2024-10-23 10:27 | PTCARENOTE ---
Rec'd pt post rapid response. S/P seizure. Post Ictal but arousable, AAO x1, incontinent of large amounts of urine. EEG in progress. Heparin drip restarted. vital signs stable. K and Mag riders infusing with LR.
--- NOTE | 2024-10-23 10:46 | PN.CDI ---
CDI
- -
CDI:
Physician Documentation Request
Admit Date: 10/20/24 16:16
Dear Doctor Brian,
Patient admitted for failure to thrive.
10/22 Bracelet And Brooch Maker Assessment: 'Pt reports a UBW of 115 lbs pts weight in emergency room (08/17) was 112 lbs, CBW 93 lbs reflective of a 19 lb (17%) weight loss in two months (significant)...With weight loss of > 7.5% in three months and < 75%
estimated needs > 1 month pt meets AND/ASPEN criteria for severe protein calorie malnutrition of chronic illness.'
Based on the above information and your assessment, which of the following most accurately represents the patient's nutritional status?
Severe protein calorie malnutrition
Other
[place] Criteria ([facility] Hospitalist 2017)
2 or more criteria must be present for either
non severe or severe malnutrition
Note that the criteria differs related to the
presence of an acute or chronic illness
Acute Illness Chronic Illness
Energy Intake Non Severe: <75% for >7 days Non Severe: <75% for >1 month
Severe: <50% for >5 days Severe: <75% for >1 month
Weight Loss Non Severe: 1-2% over 1 week Non Severe: 5% over 1 month
5% over 1 month 7.5% over 3 months
7.5% over 3 months 10% over 6 months
1 year N/A 20% over 1 year
Severe: >2% over 1 week Severe: >5% over 1 month
>5% over 1 month >7.5% over 3 months
>7.5% over 3 months >10% over 6 months
1 year N/A >20% over 1 year
Body Fat Non Severe: Mild Decrease Non Severe: Mild Loss
Severe: Moderate Decrease Severe: Severe Loss
Muscle Mass Non Severe: Mild Decrease Non Severe: Mild Loss
Severe: Moderate Decrease Severe: Severe Loss
Fluid Accumulation Non Severe: Mild Accumulation Non Severe: Mild Accumulation
Severe: Moderate to severe Severe: Moderate to severe
accumulation accumulation
Reduced Trauma Program Manager Strength Non Severe: N/A Non Severe: N/A
Severe: Measurably reduced Severe: Measurably reduced
Additional criteria that can be used to Determine if Mild or Moderate Malnutrition (Merck Manual 2018)
Mild Moderate Severe
Albumin gm/dl <3.0 gm/dl <2.5 gm/dl <2.0 gm/dl
Pre Albumin mg/dl <15 gm/dl <10 mg/dl <5.0 mg/dl
BMI <18.5 <17 <16
Use of terms such as suspected, likely, concern for, or probable (associated with a specific diagnosis that is being evaluated, monitored, or treated as if it exists) are acceptable and can be coded in the inpatient setting, when documented at the
time of discharge.
Thank you,
Deborah Maier RN, BSN
CDI Specialist
Available via [place] text
Please use your independent medical judgment in providing your response.
[2024-10-23] MEDS: STERILE WATER FOR INJECTION IV (10:48)
[2024-10-23] MEDS: MAXIPIME IV (10:48)
--- NOTE | 2024-10-23 11:05 | CON.NEURO ---
Neuro Assessment/Plan
Assessment
Patient with known Parkinson's disease and significant dementia as well as significant weight loss in the last month presenting with worsening and failure to thrive. Patient was also described as having a generalized tonic-clonic event.
Plan
Continue the patient's usual medications
Consideration for hospice seems appropriate
Patient should be initiated on levetiracetam 1000 mg twice a day due to new onset seizure
Low yield to patient undergoing MRI of brain as if the patient has a structural abnormality by MRI of brain, then it is unlikely she will be a candidate for surgical remediation.
Continue patient's usual carbidopa/levodopa 25/101.5 tablets 4 times a day for treatment of Parkinson's disease
Patient's CT of the head suggests normal pressure hydrocephalus, this is not likely to warrant further evaluation based on the patient's significant and profound dementia which would not be remediated by treatment
Will follow peripherally
Consultation
Order
Date of Consultation: 10/23/24
Requesting Provider: Hospitalist
Reason for Consult: New onset seizure
Subjective/Objective
Subjective Data
Date of Service: October 23, 2024
Approximately 5 years ago, patient developed symptoms of parkinsonism. She was then followed by a subspecialist in the field of movement disorders who confirmed the diagnosis of Parkinson's (Dr. Dulce Valera). The patient's best bet scribed as
having a progressive decline in cognitive function to the point of which she now lives in an assisted living facility and is unable to perform her activities of daily living. The patient is also described as having significant weight loss of
approximately 10 kg in the last 4 weeks for which further evaluation by means of gastroenterology was planned. Due to the profound worsening, the patient was brought to this hospital's emergency department for further evaluation and treatment. The
patient 3 days after presentation was described as having a generalized tonic-clonic seizure, described in the record as the patient having a head turning to the right with duration of a few minutes and self discontinuing. The patient is not
described as having prior episodes which were similar. There is no information regarding dyscontrol of bowel or bladder at the time.
Objective Data
Vital Signs
Temp Pulse Resp BP Pulse Ox
36.8 C 68 16 133/70 96
10/23/24 07:35 10/23/24 07:35 10/23/24 07:35 10/23/24 07:35 10/23/24 07:35
Lab Results
10/23/24 05:32
10/23/24 05:32
PT 16.1 Sec (11.4-14.6) H 10/22/24 06:10
INR 1.26 10/22/24 06:10
APTT 61.0 Sec (23.4-35.0) H 10/23/24 05:32
Sodium 134 mmol/L (135-145) L 10/23/24 05:32
Potassium 2.8 mmol/L (3.5-5.1) L 10/23/24 05:32
BUN 4 mg/dl (7-17) L 10/23/24 05:32
Glucose 91 mg/dl (70-99) 10/23/24 05:32
Calcium 8.2 mg/dl (8.4-10.2) L 10/23/24 05:32
Phosphorus 2.3 mg/dl (2.5-4.5) L 10/23/24 05:32
Vitamin B12 263 pg/ml (239-931) 10/21/24 05:51
Patient Allergies
Penicillins Allergy (Verified 10/20/24 20:34)
Rash
Sulfa (Sulfonamide Antibiotics) Allergy (Verified 10/20/24 20:34)
Rash
Review of Systems
-
Unable to obtain full review of systems at this time due to: Lethargy
History Source: Patient
All other systems: Reviewed and negative
Physical Exam
-
General: No Apparent Distress and Appears Stated Age
Eyes: Round OU, Savage Conjunctivae and No Ptosis; Negative Able to visualize OU
HEENT: Anicteric and Moist Mucous Membranes
Neck: Full Range of Motion
Respiratory: No Dyspnea
Cardiac: No JVD
GI: Non-distended
Skin: Unremarkable
Extremities: No Clubbing, No Cyanosis and No Edema
Psych: Negative Intact Judgement/Insight
Extended Neurological Exam
Mood & Affect: Affect Unremarkable and Other (Mildly agitated)
Attention Span & Concentration: Awake, Unable to Perform 2 Step Request and Other (Does not follow most single step requests single step requests); Negative Alert or Interactive (Intermittently interactive and at times refusing examiners requests)
Memory: Able to Recall (Own name), Reduced (For recall of month and year as well as location) and Unable to Recall Personal History
Tremor: Hand Tremor Absent and Head Tremor Absent
Involuntary Movement: None
Speech: Severely Reduced Output and Other (Moderate really to severely hypophonic); Negative Dysarthric or Hoarse
Cranial Nerve II: Left Eye: Pupillary Reactivity Unremarkable, Pupillary Size Unremarkable and Unable to Assess Visual [place]
Cranial Nerve II: Right Eye: Pupillary Reactivity Unremarkable, Pupillary Size Unremarkable and Unable to Assess Visual [place]
Cranial Nerves III, IV, : Extraocular Movement: Grossly Intact
Cranial Nerve V: Facial Sensation: Unable to Assess
Cranial Nerve VII: Facial Symmetry: Normal Facial Symmetry
Cranial Nerve VIII: Hearing: Unremarkable Hearing to Normal Conversational Volume
Cranial Nerves IX, X: Palate Movement: Unable to Assess
Cranial Nerve XI: Shoulder Shrug: Unremarkable
Cranial Nerve XII: Tongue Protusion: Unable to Assess
Muscle Strength, Overall: Spontaneously Moves (All extremities minimally)
Muscle Bulk & Tone: Bulk Unremarkable and Increased Tone
Pronator Drift: Unable to Assess
Deep Tendon Reflexes: Trace Throughout
Cold Sensation: Unable to Assess
Vibration Sensation: Unable to Assess
Touch Sensation: Unremarkable
Coordination: Unable to Assess
Babinski Sign: Absent Bilaterally
Gait & Station: Unable to Assess
Data Reviewed
-
CT-A: Report Reviewed
CT Head: Report Reviewed
EEG: Report Reviewed
Labs: Report Reviewed
Reviewed with: Physician and Family
Old Records: Summarized
Medications
-
Active Medications
Generic Name Dose Route Start Last Admin
Trade Name Freq PRN Reason Stop Dose Admin
Acetaminophen 650 mg 10/20/24 19:38
Acetaminophen 325 Mg Tablet PO 11/17/24 19:37
Q4HPRN PRN
mild pain/NGUYEN/temp> 100.4F
Amlodipine Besylate 2.5 mg 10/21/24 08:00 10/23/24 10:11
Amlodipine 2.5 Mg Tablet PO 11/18/24 07:59 Not Given
DAILY TRES
Aspirin 81 mg 10/21/24 08:00 10/23/24 10:11
Aspirin 81 Mg Chewable Tablet PO 11/18/24 07:59 Not Given
DAILY TRES
Atorvastatin Calcium 40 mg 10/20/24 22:00 10/22/24 20:30
Atorvastatin (Lipitor) 40 Mg Tablet PO 11/17/24 21:59 40 mg
HS TRES Administration
Bisacodyl 10 mg 10/20/24 19:38
Bisacodyl 10 Mg Rectal Suppository RECTAL 11/17/24 19:37
[id number] PRN
constipation
Carbidopa/Levodopa 1.5 tablet 10/20/24 19:38 10/23/24 10:12
Carbidopa (25 Mg)/Levodopa (100 Mg) Regular Release Tablet PO 11/17/24 19:37 Not Given
QID TRES
Ceftriaxone Sodium 1,000 mg 10/23/24 12:00
Ceftriaxone 1000 Mg / 10 Ml Vial IV
Q24H TRES
Cyanocobalamin 100 mcg 10/23/24 12:00
Cyanocobalamin (1000 Mcg/Ml) 1 Ml Vial IM 11/20/24 11:59
DAILY TRES
Famotidine 20 mg 10/21/24 08:00 10/23/24 10:11
Famotidine 20 Mg Tablet PO 11/18/24 07:59 Not Given
DAILY TRES
Heparin Sodium 3,400 units 10/21/24 08:25
Heparin 80 Units/Kg Iv Rebolus IV 11/18/24 08:24
PRN PRN
PTT < OR = 64 seconds
Heparin Sodium 1,700 units 10/21/24 08:25 10/22/24 19:59
Heparin 40 Units/Kg Iv Rebolus IV 11/18/24 08:24 1,700 units
PRN PRN Administration
PTT = 64.1 to 72.9 seconds
Heparin Sodium 25,000 units in 250 mls @ 0 mls/hr 10/21/24 08:15 10/22/24 20:07
Heparin 85596 Units/250 Ml IV 250 mls
PER PROTOCOL TRES Administration
Protocol
Per Protocol
Folic Acid 1 mg/ Sodium 50.2 mls @ 200.8 mls/hr 10/21/24 11:00 10/22/24 13:15
Chloride IV 11/18/24 10:59 50.2 mls
Q24H TRES Administration
Lactated Ringer's 1,000 mls @ 60 mls/hr 10/23/24 09:00 10/23/24 08:25
Lr IV 1,000 mls
.[id number] TRES Administration
Potassium Chloride 40 meq/ 270 mls @ 67.5 mls/hr 10/23/24 08:11 10/23/24 08:25
Sodium Chloride IV 10/23/24 12:10 270 mls
NOW STA Administration
Magnesium Sulfate 4 gram in 100 mls @ 25 mls/hr 10/23/24 08:48 10/23/24 09:36
Magnesium Sulfate IV 10/23/24 12:47 100 mls
NOW STA Administration
Potassium Phosphate 12 meq/ 152.7273 mls @ 76.364 mls/hr 10/23/24 09:28
Sodium Chloride IV 10/23/24 11:27
NOW STA
Potassium Chloride 20 meq/ 160 mls @ 80 mls/hr 10/23/24 13:00
Sodium Chloride IV 10/23/24 14:59
ONCE ONE
Levetiracetam 1,000 mg 10/23/24 20:00
Levetiracetam (100 Mg/Ml) 500 Mg/5 Ml Vial IV 11/20/24 19:59
Q12 TRES
Methimazole 2.5 mg 10/21/24 08:00 10/23/24 10:12
Methimazole 5 Mg Tablet PO 11/18/24 07:59 Not Given
DAILY TRES
Metoprolol Tartrate 25 mg 10/20/24 20:00 10/23/24 10:11
Metoprolol 25 Mg Regular Release Tablet PO 11/17/24 19:59 Not Given
BID TRES
Mirtazapine 7.5 mg 10/20/24 22:00 10/22/24 20:29
Mirtazapine 7.5 Mg Regular Release Tablet PO 11/17/24 21:59 7.5 mg
HS TRES Administration
Pantoprazole Sodium 40 mg 10/21/24 08:00 10/23/24 10:12
Pantoprazole 40 Mg Delayed Release Tablet PO 11/18/24 07:59 Not Given
DAILY TRES
Polyethylene Glycol 17 grams 10/20/24 19:38
Polyethylene Glycol Powder 17 Grams Packet PO 11/17/24 19:37
DAILYPRN PRN
constipation
Rivastigmine Tartrate 1.5 mg 10/20/24 20:00 10/23/24 10:10
Rivastigimine (Exelon) 1.5 Mg Capsule PO 11/17/24 19:59 Not Given
BID TRES
Senna/Docusate Sodium 1 tablet 10/20/24 19:38
Docusate W/Senna (Tiffani-Colace) Tablet PO 11/17/24 19:37
BIDPRN PRN
constipation
Sertraline HCl 25 mg 10/21/24 08:00 10/23/24 10:12
Sertraline 25 Mg Tablet PO 11/18/24 07:59 Not Given
DAILY TRES
Sodium Chloride 0 flush 10/20/24 21:00
Sodium Chloride 0.9% (Flush) Syringe IV 11/17/24 20:59
PER PROTOCOL TRES
Sodium Chloride 0 flush 10/23/24 11:55
0.9% Nacl Flush If Lactated Ringers Ivf Ordered IV 11/20/24 11:54
BID@1155,1205 TRES
Sterile Water 10 ml 10/23/24 12:00
Sterile Water For Injection 10 Ml Vial IV 11/20/24 11:59
Q24H TRES
Thiamine HCl 100 mg 10/23/24 12:00
Thiamine (100 Mg/Ml) 2 Ml Vial IV 10/26/24 11:59
DAILY TRES
Home Medications
�Medication �Instructions �Recorded
acetaminophen 325 mg tablet 650 mg PO Q4HPRN PRN mild 08/16/24
pain/temp>100F
amlodipine 2.5 mg tablet 2.5 mg PO DAILY Blood Pressure 08/16/24
aspirin 81 mg chewable tablet 81 mg PO DAILY Heart 08/16/24
Disease/Condition
atorvastatin 40 mg tablet 40 mg PO HS High Cholesterol 08/16/24
bisacodyl 10 mg rectal suppository 10 mg NE DAILYPRN PRN if mom is 08/16/24
(Dulcolax (bisacodyl)) ineffective after 24hrs
calcium carbonate (Tums) 400 mg PO Q8HPRN PRN indigestion 08/16/24
carbidopa 25 mg-levodopa 100 mg 1.5 tab PO QID Neurological 08/16/24
tablet Condition
famotidine 20 mg tablet 20 mg PO DAILY Gastrointestinal 08/16/24
Issue
methimazole 5 mg tablet 2.5 mg PO DAILY Thyroid 08/16/24
metoprolol tartrate 25 mg tablet 25 mg PO BID Blood Pressure 08/16/24
nitroglycerin 0.4 mg sublingual 0.4 mg sublingual [id number] PRN 08/16/24
tablet (Nitrostat) chest pain
ondansetron HCl 4 mg tablet 4 mg PO Q6HPRN PRN nausea 08/16/24
pantoprazole 40 mg tablet,delayed 40 mg PO DAILY Gastrointestinal 08/16/24
release Issue
simethicone 80 mg chewable tablet 80 mg PO Q6HPRN PRN gas 08/16/24
sodium phosphates 19 gram-7 118 ml NE DAILYPRN PRN if dulcolax 08/16/24
gram/118 mL enema (Fleet Enema) is ineffective after 24hrs
calcium carbonate (Oyster Shell 500 mg PO BID Supplement 10/20/24
Calcium)
magnesium hydroxide 400 mg/5 mL 30 ml PO DAILY PRN CONSTIPATION 10/20/24
oral suspension (Milk of Magnesia)
mirtazapine 30 mg tablet 30 mg PO HS Neurological Condition 10/20/24
polyethylene glycol 3350 17 gram 17 g PO DAILYPRN PRN CONSTIPATION 10/20/24
oral powder packet (Miralax)
rivastigmine tartrate 3 mg capsule 3 mg PO BID Neurological Condition 10/20/24
sertraline 25 mg tablet (Zoloft) 75 mg PO DAILY Mental 10/20/24
Health/Anxiety
[2024-10-23] MEDS: POTASSIUM PHOSPHATE 152.7273 MEQ IV (11:20)
--- NOTE | 2024-10-23 11:37 | W.PN.UPDATE ---
Update Note
Progress Note Update
Discussed with patient's daughter Ashley healthcare proxy who confirmed patient's preferred code status as DNR. Patient unable to make decisions for herself.
[2024-10-23] MEDS: FOLVITE 50.2 MG IV (11:39)
--- NOTE | 2024-10-23 12:34 | W.PN.GI.CBS2 ---
Today's Communication / Plan
-
GI signing off
Assessment / Plan
-
Pt is a 73 y.o female with a past medical history of HTN, HLD, hyperthyroidism, CAD (s/p stents), bradycardia, PVCs, asthma/COPD, Parkinson's disease, dementia, anxiety/depression and acid reflux with new GI patient evaluation 10/20 due to concern for
nausea, trouble eating and profound unintentional weight loss. Pt did have ER evaluation in August with weakness, fatigue, and poor po intakes. She was noted with hbg 9.9 with heme neg stool. Since that visit pt continues to decline with further wt
loss. She was referred back to ER and on CT imaging noted DVT, cystitis, b/l pyelonephritis, mild proctocolitis, diverticulosis, atherosclerosis, osteoporotic fracture, DDD. She is also noted with further drop in hbg to 7.1. Per review with
patient and family noted with decreased appetite. She was recently eating some random items such as pickles or olives but did not eat large meals. She admits to nausea but denies dysphagia, GERD, vomiting, abdominal pain, diarrhea, constipation
or bleeding. No hx EGD or colonoscopy in past.
--> Patient with rapid response with new onset seizure with right gaze deviation with decorticate posturing. Neurology consulted. Discussed with patient's daughter (Ashley) at length. At this point she does not wish to proceed with any further
endoscopic evaluation. She states that she would like her to eat and drink what she wants. She will most likely proceed with palliative/hospice care in the future. Patient is going to have a CEA level drawn this way it gives the daughter more
information also with possible future information for herself and her daughter.
-symptomatic anemia
-wt loss
-nausea
-failure to thrive
-CT with new DVT
-mild proctocolitis
-Ct with b/l pyelonephritis
-osteoporotic fracture/DDD
-new onset seizure
other med problems:
-HTN
-HLD
-hyperthyroidism on Methimazole TSH 3.85
-CAD (s/p stents)
- bradycardia,
-PVCs
-asthma/COPD
-Parkinson's disease
-dementia, anxiety/depression
-acid reflux
Plan:
No further GI intervention no endoscopic procedures. Discussed with daughter at length.
She states that she accepts that she would eat and drink what she can. Same with medications.
She states that she will most likely proceed with palliative/hospice care in the future.
CEA level, daughter wishes to have this for information purposes
Nothing further from a GI perspective. We did discuss this as well. I did advise her that we will be signing off at this juncture. In the future if she wishes us to come back on we would.
Subjective
Subjective
Date of Service: October 23, 2024
Had plans to perform possible EGD and colonoscopy secondary to patient weight loss and poor po intake. Unfortunately patient was rapid response with new onset seizure episode described as right gaze deviation with decorticate positioning. Discussed
with daughter at bedside. She does not wish to proceed with any kind of endoscopic procedures including endoscopy and colonoscopy. She plans on proceeding with allowing her mother to eat and drink the best that she can. She states that she is
most likely going to consider palliative/hospice care in the future.
Objective
Data Reviewed
Laboratory Data:
Laboratory Results
10/23/24 05:32
10/23/24 05:32
Laboratory Results
PT 16.1 Sec (11.4-14.6) H 10/22/24 06:10
INR 1.26 10/22/24 06:10
APTT 61.0 Sec (23.4-35.0) H 10/23/24 05:32
Phosphorus 2.3 mg/dl (2.5-4.5) L 10/23/24 05:32
Magnesium 1.5 mg/dl (1.6-2.3) L 10/23/24 05:32
Total Bilirubin 0.9 mg/dl (0.2-1.3) 10/20/24 11:44
AST 13 U/L (14-36) L 10/20/24 11:44
ALT < 10 U/L (0-35) 10/20/24 11:44
Alkaline Phosphatase 71 U/L (38-126) 10/20/24 11:44
Vital Signs and I&O:
Vital Signs
Temp Pulse Resp BP Pulse Ox
98.2 F 68 16 133/70 96
10/23/24 07:35 10/23/24 07:35 10/23/24 07:35 10/23/24 07:35 10/23/24 07:35
I&O
10/22/24 10/23/24 10/24/24
06:59 06:59 06:59
Intake Total 3890 / 3890 685 / 685
Output Total 750 / 750
Balance 3890 / 3890 685 / 685 -750 / -750
Physical Exam
Physical Exam
Cardiology: Normal Sinus Rhythm
Pulmonary: Clear (anterior)
GI: Soft, Non Distended, Non Tender and Normal Bowel Sounds
Neuro: Other (lethargic, arousable)
[2024-10-23] MEDS: FLUSH (NSS) 1 FLUSH IV ×3 (12:56→12:57)
[2024-10-23] MEDS: ROCEPHIN 1000 MG IV (12:57)
[2024-10-23] MEDS: THIAMINE INJECTION 100 MG IV (12:57)
[2024-10-23] MEDS: CYANOCOBALAMIN 1000 MCG IM (12:58)
[2024-10-23] MEDS: KCL 160 MEQ IV (14:17)
--- NOTE | 2024-10-23 14:29 | EEG.RPT ---
Electroencephalogram Report
Recording
Date of EE10/23/24
Length of EEG recordin minutes
Done with Video Recording: Yes
Patient Status: Inpatient
Recording Conditions: Awake and Drowsy
Hyperventilation Performed: No
Photic Stimulation Performed: Yes
Report
LESS THAN 1 HOUR EEG REPORT
LESS THAN 1 HOUR EEG INTERPRETATION:
Mildly�moderately abnormal EEG for age due to diffuse bihemispheric slowing
CLINICAL CORRELATION:
This study was suggestive of diffuse cortical dysfunction without focal abnormality. No seizures were recorded.
Clinical correlation is advised.
METHODS:
A 21 channel digitized electroencephalogram (EEG) was performed at the bedside. The 10/20 international system of electrode placement was used with ECG and lateral/vertical eye movements recorded. Persyst QEEG monitoring was performed.
QUALITY OF STUDY:
Fair due to artifact
ELECTROENCEPHALOGRAPHER IMPRESSION(S):
Background
There was a low amplitude fairly well organized anterior-posterior voltage gradient of theta frequency
There were no significant asymmetries of background activity noted.
Sleep
Drowsiness present
Photic Stimulation
Failed to activate the record.
ECG
Normal sinus rhythm
[2024-10-23 17:18] LABS: APTT 36.5 Sec (23.4-35.0)
--- NOTE | 2024-10-23 17:46 | PTCARENOTE ---
pt w/ brief episode of increased HR, up to 180s. Pt drowsy/lethargic, only responsive to pain. pupils equal and responsive, right gaze noted. Dr. Torres at bedside to examine pt.
[2024-10-23 17:51] LABS: Glucose - Point of Care 84 mg/dl (70-99)
--- NOTE | 2024-10-23 18:20 | PTCARENOTE ---
Dr. Torres instructed this RN to give 2000 dose of keppra early. See MAR.
[2024-10-23] MEDS: KEPPRA 1000 MG IV (18:24)
[2024-10-23] MEDS: HEPARIN 3400 UNITS IV (19:06)
[2024-10-23] MEDS: LIPITOR PO (19:35)
[2024-10-23] MEDS: REMERON PO (19:35)
[2024-10-23 20:24] LABS: CEA 3.74 ng/ml
--- NOTE | 2024-10-23 20:27 | PTCARENOTE ---
Received patient at start of shift from dayshift rn. Patient in bed, seizure pads in place. Patient minimally responsive to verbal and tactile stimuli; moans yes or no at times, not answering with words. B/L Pupils reactive to light, slow. Sinus
shakira on the monitor, normal sinus at times, + radial and pedal pulses b/l. Lungs cta throughout. BS active x4. Purewick remains in place and draining clear yellow urine. Patient with LR running, as well as Heparin gtt. Heparin gtt currently at
500u/hr. Call fermin within reach, will continue to monitor patient closely.
[2024-10-23] MEDS: NEUPRO 4 MG TRANSDERM (21:20)
[2024-10-24] VITALS (11 sets, daily range): BP systolic 105–147; BP diastolic 53–91; BMI 18.2
--- NOTE | 2024-10-24 01:32 | PTCARENOTE ---
Patients eyes open and patient alert while attempting to draw ptt, minimally responsive to verbal stimuli however tracking with eyes. Patient had a witnessed seizure while rn and pct at bedside, tonic clonic, lasted approx 2 minutes, hr increased to
200's, safety measures in place to prevent injury. Hr decreased to 90's within a minute during post ictal phase. ALESSANDRO Avalos notified of seizure activity.
[2024-10-24 01:56] LABS: Hematocrit 29.6 % (37.0-47.0); Mean Corp Hgb Conc. 33.8 g/dL (33.0-37.0); Mean Corpuscular Hgb 29.3 pg (27.0-31.0); Mean Corpuscular Volume 86.8 fL (81.0-99.0); Mean Platelet Volume 11.6 fL (7.4-10.4); Platelet Count 238 10^3/uL (130-400); Red Blood Cell Count 3.41 10^6/uL (4.20-5.40); Red Cell Dist. Width 18.3 % (11.5-14.5); White Blood Cell Count 8.9 10^3/uL (4.8-10.8)
[2024-10-24] MEDS: LR 1000 IV (02:04)
[2024-10-24 02:17] LABS: APTT 127.3 Sec (23.4-35.0)
[2024-10-24 02:32] LABS: Blood Urea Nitrogen 4 mg/dl (7-17); Calcium 8.8 mg/dl (8.4-10.2); Carbon Dioxide 24 mmol/L (22-30); Chloride 106 mmol/L (98-107); Estimated Creatinine Clearance 58 ml/min; Glucose 95 mg/dl (70-99); Magnesium 2.6 mg/dl (1.6-2.3); Phosphorus 2.6 mg/dl (2.5-4.5); Potassium 3.5 mmol/L (3.5-5.1); Sodium 141 mmol/L (135-145); eGFR > 60.00
--- NOTE | 2024-10-24 04:49 | PTCARENOTE ---
Patient has second seizure lasting approximately 30 seconds. Left sided gaze present and seizure activity noted along with hr into the 200's. Post ictal hr returned to 60's. RN notified ALESSANDRO Avalos.
--- NOTE | 2024-10-24 06:33 | W.PN.HOSP.TC ---
Today's Communication/Plan
-
comfort measures
transfer to [facility]
Assessment / Plan
Assessment / Plan
General: No Apparent Distress, appearsComfortable
HEENT: NormoCephalic, Moist mucous membranes, Atraumatic
Respiratory: Clear and Non Labored Respirations
Cardiac: S1/S2 and Regular Rhythm; No Rub or Gallop
GI: Soft, Non Tender, Non Distended and Normal Bowel Sounds
Musculoskeletal: No Edema, no deformity, decreased muscle bulk throughout
Skin: Warm and dry, pale
Neuro: AOx1 oriented only to self paucity of speech 1 to 2 word answers if any
Psych: Calm
Ms. Rivera is a 73-year-old female with a medical history of CAD (stents x 2), Parkinson's dementia, uterine cancer (status post JODI), and hypothyroidism who presented with vague abdominal pain and nausea for the past few days. Her daughter also
reports significant weight loss of approximately 20 pounds in the past 4 weeks. Outpatient workup has been ongoing, including a GI office visit today at which point it was recommended she go to the emergency department for further evaluation and
management. In the ED she was hemodynamically stable. However CT imaging of her abdomen and pelvis with IV and oral contrast revealed severe acute cystitis with suspected bilateral pyelonephritis in addition to acute left common femoral DVT and
mild proctocolitis. She was given IV fluids, started on antibiotics, and anticoagulated with Eliquis. She has been admitted for further evaluation and management.
10/23/24 New onset sz episode, described as right gaze deviation with de-corticate positioning lasting for a few min, self-aborted
-confirmed with Daughter Ashley, patient has never had a seizure before
-CT head CTA head/neck reviewed noted no acute intracranial hemorrhage, PE was noted along with multinodular goiter
-transferred to IMU for closer monitoring
-neuro eval appreciated
-started on keppra as per discussion with neurology
-EEG results reviewed no sz activity recorded
-aspiration/sz precautions
-speech eval appreciated soft bite sized diet
Parkinson
-home sinemet was continued, held while NPO d/t post-ictal, substituted with Neupro while held
Hypokalemia/Hypomagnesemia/Hypophosphatemia
repleted resolved
Significant weight loss:
- Daughter reports 20 pound weight loss over the past 4 weeks
- CT imaging showed mild proctocolitis and the acute cystitis with bladder wall thickening
- UA shows RBCs with few WBCs and bacteria, urine culture growing MDR Proteus susceptible to cefepime
- Hemoglobin dropped to yesterday morning 7.1 and so was transfused 1 unit PRBCs, hemoglobin 8.9 on labs this morning
- Clinical picture suspicious for malignancy especially considering finding of acute DVT, workup ongoing
- bowel prep over the weekend with planned upper and lower endoscopy on Monday 10/23 after Eliquis washout, procedure canceled d/t new onset sz as above
- GI eval appreciated daughter no longer wished to pursue endoscopic evaluation, daughter further expressed interest in pursuing hospice, see goals of care discussion as below
- Follow-up CEA result pending
Anemia requiring transfusion:
- Hemoglobin dropped from 8.6-7.1, likely partially dilutional after IV fluids
- Transfused 1 unit PRBCs, hemoglobin 8.9 this morning
- Planed upper and lower GI scope on hold d/t new onset sz as above
- Monitor for brisk bleeding and transfuse further as needed
- Remains hemodynamically stable
Cystitis with suspected pyelonephritis:
- Urine cultures growing MDR Proteus, treated with Cefipime later switched to Ceftriaxone d/t sz concerns
- Malignancy workup ongoing
Acute DVT:
- Left common femoral vein
- Transitioned anticoagulation to IV heparin for now and holding Eliquis pending endoscopy. Later switched to therapeutic Lovenox while npo
- Malignancy workup ongoing
DVT prophylaxis: IV heparin drip holding for CT imaging as above, to be resumed if no bleeding noted
CODE STATUS: Full code
Goals of Care Discussion 10/24/24:
Discussed with patient's daughter healthcare proxy Ashley following her discussion with Hospice Consult RN. Daughter reported agreement with Hospice Philosophy and requested patient be converted to comfort measures, prioritizing patient's quality
of life in her remaining time and discontinuing measures/treatments/testing/imaging that may prolong patient's life without significant positive contribution to quality. Discussed potential outcomes of comfort measures where patient may pass
quickly, require inpatient hospice, or potentially may remain stable to continue with hospice at SNF. Patient's daughter was able to verbalize her understanding and confirm desire to proceed. Patient unable to make decisions for herself, has been
relying on daughter to make decisions for her for some time now. Hospice appropriate end stage disease Parkinson Dementia Failure to thrive poor oral intake non-ambulatory for a year, new onset sz disorder, likely prognosis less 1 month. Care
updated as per patient's family's wishes and patient transferred to med/surg
I spent a total of 60 minutes with the patient or on the floor. More than 50% of this time involved counseling and coordination of care.
Anticipated Discharge: 24 - 48 hours
Subjective/Interval History
-
Date of Service: October 24, 2024
seen and examined at bedside in no acute distress resting comfortably in bed. Notably more alert awake communicative compared to yesterday. Paucity of speech, 1 to 2 word responses if any. Oriented only to self. Noted overnight events 2
self-limited sz episodes.
Objective Data
-
Labs:
Laboratory Results
10/24/24 10/24/24 10/24/24
01:49 07:25 08:25
WBC 8.9
Hgb 10.0 L
Hct 29.6 L
Plt Count 238
APTT 127.3 H Cancelled Pending
Sodium 141
Potassium 3.5
Chloride 106
Carbon Dioxide 24
BUN 4 L
Creatinine 0.4 L
Glucose 95
Calcium 8.8
Vital Signs:
Vital Signs
Temp Pulse Resp BP Pulse Ox
98.0 F 56 9 127/57 96
10/24/24 03:20 10/23/24 19:41 10/23/24 14:00 10/23/24 19:41 10/23/24 20:23
I&O
10/22/24 10/23/24 10/24/24
06:59 06:59 06:59
Intake Total 3890 / 3890 685 / 685
Output Total 2099
Balance 3890 / 3890 685 / 685 -2099 /
[2024-10-24] MEDS: NORVASC PO (08:08)
[2024-10-24] MEDS: KEPPRA 1000 MG IV (08:08)
[2024-10-24] MEDS: LOPRESSOR PO (08:08)
[2024-10-24] MEDS: THIAMINE INJECTION 100 MG IV (08:08)
[2024-10-24] MEDS: EXELON PO (08:08)
[2024-10-24] MEDS: LOW STRENGTH ASPIRIN PO (08:08)
[2024-10-24] MEDS: ZOLOFT PO (08:09)
[2024-10-24] MEDS: PROTONIX PO (08:09)
[2024-10-24] MEDS: PEPCID PO (08:09)
[2024-10-24] MEDS: TAPAZOLE PO (08:09)
--- NOTE | 2024-10-24 08:30 | W.PN.UPDATE ---
Update Note
Progress Note Update
discussed with daughter Ashley agreeable to Hospice eval, consult ordered accordingly.
Patient hospice appropriate end stage disease Parkinson Dementia Failure to thrive poor oral intake non-ambulatory for a year, new onset sz disorder, likely less than 6 mo prognosis.
hep gtt transitioned to Lovenox no further procedures planned
Neupro patch started while unable to tolerate PO d/t lethargy post-ictal, follow up speech eval, cont seizure medications as per neuro
[2024-10-24] MEDS: LOVENOX 40 MG SC (09:48)
--- NOTE | 2024-10-24 11:28 | CM ---
Patient from [facility] with Hx Parkinson Dementia & FTT with Dx acute DVT, Cystitis with suspected pyelonephritis, anemia, wt loss.
CM Consult: Hospice
Spoke with patient's daughter Ashley;
she is familiar with hospice- reviewed hospice philosophy & benefits.
She agrees with speaking with hospice nurse today.
Referral to [facility].
Plan follow up after seen by Hospice.
--- NOTE | 2024-10-24 11:29 | PTOTSP ---
Dysphagia Evaluation
Mild oral dysphagia without overt signs/symptoms or complaints concerning for pharyngeal dysphagia. At risk for dysphagia given Parkinson's dementia, cognitive impairment, and acute seizures this admission.
Recommend:
1. IDDSI Level 6 Soft/Bite Sized, Thin
2. Medications as best tolerated
3. Full supervision/assist
4. Strategies: upright to 90 degrees, PO only when awake/alert, small sips/bites, alternate sips/bites
5. Dysphagia f/u at the acute care level pending GOC
[2024-10-24] MEDS: STERILE WATER FOR INJECTION 10 ML IV (11:30)
[2024-10-24] MEDS: FOLVITE 50.2 MG IV (11:30)
[2024-10-24] MEDS: ROCEPHIN 1000 MG IV (11:30)
[2024-10-24] MEDS: FLUSH (NSS) IV ×2 (11:33)
[2024-10-24 11:40] LABS: Glucose - Point of Care 98 mg/dl (70-99)
--- NOTE | 2024-10-24 12:03 | HOSPNOTE ---
Addendum entered by Vickie Salcedo RN 10/24/24 15:36:
Daughter is in agreement with comfort measures, no more blood work or any further testing. The plan is comfort measures today and re assess for inpatient hospice in the am 10/25.
Original Note:
Spoke with daughter and explained hospice and the philosophy. The daughter is in agreement with hospice will speak with Attending. More information to follow.
--- NOTE | 2024-10-24 12:41 | PTCARENOTE ---
Assumed care of patient at beginning of this shift. Patient opened her eyes when asked; hypersensitive to touch, stating 'ouch' whenever touched or moved. Dr Torres in to see patient this morning; see updated orders. Neupro patch removed. Lovenox
administered as ordered and heparin drip d/c'd. Morning PTT not drawn as per Dr Torres. Speech therapist worked with patient; patient was able to give her own name when asked. ST recommended IDD6 soft and bite sized with thin liquids; diet upgraded by
Dr Torres. Reviewed with Dr Torres that patient had 2 seizures overnight per previous RN. Son-in-law in room and updated. See worklist for full assessment and vital signs.
--- NOTE | 2024-10-24 15:10 | W.PN.UPDATE ---
Update Note
Progress Note Update
Discussed with patient's daughter healthcare proxy Ashley who reports having discussed with Hospice Consult and is in agreement with Hospice Philosophy.
Daughter requests patient be converted to comfort measures, prioritizing patient's quality of life in her remaining time and discontinuing measures/treatments/testing/imaging that may prolong patient's life without significant positive contribution
to quality. Discussed potential outcomes of comfort measures where patient may pass quickly, require inpatient hospice, or potentially may remain stable to continue with hospice at SNF. Patient's daughter was able to verbalize her understanding
and confirm desire to proceed. Patient unable to make decisions for herself, has been relying on daughter to make decisions for her for some time now. Hospice appropriate end stage disease Parkinson Dementia Failure to thrive poor oral intake
non-ambulatory for a year, new onset sz disorder, likely prognosis less 1 month. Care upated as per patient's family's wishes.
[2024-10-24] MEDS: KEPPRA 1000 MG PO (19:47)
--- NOTE | 2024-10-24 20:26 | PTCARENOTE ---
Patient assessed, patient aao x1 to self, increased alterness from previous shift. Po Keppra administered per md order. Report called to [facility] on 2N. Patient transferred shortly after.
[2024-10-25] MEDS: TYLENOL 650 MG PO (02:14)
[2024-10-25 07:00] VITALS: BP 161/73
[2024-10-25] MEDS: KEPPRA 1000 MG PO ×2 (08:06→20:14)
--- NOTE | 2024-10-25 09:38 | W.PN.HOSP.TC ---
Today's Communication/Plan
-
cont comfort measures
discharge planning return to SNF on hospice likely tomorrow
Assessment / Plan
Assessment / Plan
General: No Apparent Distress, appears Comfortable
HEENT: NormoCephalic, Moist mucous membranes, Atraumatic
Respiratory: Clear and Non Labored Respirations
Cardiac: S1/S2 and Regular Rhythm; No Rub or Gallop
GI: Soft, Non Tender, Non Distended and Normal Bowel Sounds
Musculoskeletal: No Edema, no deformity, decreased muscle bulk throughout
Skin: Warm and dry, pale
Neuro: AOx1 oriented only to self, much more conversant today though confused
Psych: Calm cooperative
Ms. Rivera is a 73-year-old female with a medical history of CAD (stents x 2), Parkinson's dementia, uterine cancer (status post JODI), and hypothyroidism who presented with vague abdominal pain and nausea for the past few days. Her daughter also
reports significant weight loss of approximately 20 pounds in the past 4 weeks. Outpatient workup has been ongoing, including a GI office visit today at which point it was recommended she go to the emergency department for further evaluation and
management. In the ED she was hemodynamically stable. However CT imaging of her abdomen and pelvis with IV and oral contrast revealed severe acute cystitis with suspected bilateral pyelonephritis in addition to acute left common femoral DVT and
mild proctocolitis. She was given IV fluids, started on antibiotics, and anticoagulated with Eliquis. She has been admitted for further evaluation and management.
10/23/24 New onset sz episode, described as right gaze deviation with de-corticate positioning lasting for a few min, self-aborted
-confirmed with Daughter Ashley, patient has never had a seizure before
-CT head CTA head/neck reviewed noted no acute intracranial hemorrhage, PE was noted along with multinodular goiter
-transferred to IMU for closer monitoring
-neuro eval appreciated started on keppra 1000 mg BID, cont
-EEG results reviewed no sz activity recorded
-aspiration/sz precautions
-speech eval appreciated soft bite sized diet since advanced to regular with comfort measures as below
Parkinson
-home sinemet was continued, held while NPO d/t post-ictal, substituted with Neupro while held. Parkinson medications since discontinued for comfort measures as below
Hypokalemia/Hypomagnesemia/Hypophosphatemia
repleted resolved
Significant weight loss:
- Daughter reports 20 pound weight loss over the past 4 weeks
- CT imaging showed mild proctocolitis and the acute cystitis with bladder wall thickening
- UA shows RBCs with few WBCs and bacteria, urine culture growing MDR Proteus susceptible to cefepime
- Hemoglobin dropped to yesterday morning 7.1 and so was transfused 1 unit PRBCs, hemoglobin 8.9 on labs this morning
- Clinical picture suspicious for malignancy especially considering finding of acute DVT, workup ongoing
- bowel prep over the weekend with planned upper and lower endoscopy on Monday 10/23 after Eliquis washout, procedure canceled d/t new onset sz as above
- GI eval appreciated daughter no longer wished to pursue endoscopic evaluation, daughter further expressed interest in pursuing hospice, see goals of care discussion as below
- CEA appreciated 3.74 mildly elevated for non-smokers
Anemia requiring transfusion:
- Hemoglobin dropped from 8.6-7.1, likely partially dilutional after IV fluids
- Transfused 1 unit PRBCs with good response noted
- Planed upper and lower GI scope on held d/t new onset sz as above and subsequently canceled following goals of care discussion as below.
- Monitor for brisk bleeding and transfuse further as needed
- Remains hemodynamically stable
Cystitis with suspected pyelonephritis:
- Urine cultures growing MDR Proteus, treated with Cefipime later switched to Ceftriaxone d/t sz concerns
- abx since discontinued with comfort measures as below
Acute DVT/DC:
- Left common femoral vein, later CTA head/neck would also note PE
- respiratory status remains stable on room air
- Anticoagulation since discontinued with comfort measures as below
DVT prophylaxis discontinued with comfort measures as below
CODE STATUS: DNR
Goals of Care Discussion 10/24/24:
Discussed with patient's daughter healthcare proxy Ashley following her discussion with Hospice Consult RN. Daughter reported agreement with Hospice Philosophy and requested patient be converted to comfort measures, prioritizing patient's quality
of life in her remaining time and discontinuing measures/treatments/testing/imaging that may prolong patient's life without significant positive contribution to quality. Discussed potential outcomes of comfort measures where patient may pass
quickly, require inpatient hospice, or potentially may remain stable to continue with hospice at SNF. Patient's daughter was able to verbalize her understanding and confirm desire to proceed. Patient unable to make decisions for herself, has been
relying on daughter to make decisions for her for some time now. Hospice appropriate end stage disease Parkinson Dementia Failure to thrive poor oral intake non-ambulatory for a year, new onset sz disorder, likely prognosis less 1 month. Care
updated as per patient's family's wishes and patient transferred to med/surg
10/25/24 Patient remains relatively stable on comfort measures. Requiring no IV prn medications. Hospice eval appreciated appropriate for return to SNF on hospice.
discussed with patient's daughter Ashley
I spent a total of 45 minutes with the patient or on the floor. More than 50% of this time involved counseling and coordination of care.
Anticipated Discharge: Within 24 hours
Subjective/Interval History
-
Date of Service: October 25, 2024
Awake alert oriented only to self conversant but confused. Otherwise no acute distress. Calm cooperative.
Objective Data
-
Vital Signs:
Vital Signs
Temp Pulse Resp BP Pulse Ox
98 F 69 16 161/73 92
10/25/24 07:00 10/25/24 07:00 10/25/24 07:00 10/25/24 07:00 10/25/24 07:00
I&O
10/24/24 10/25/24 10/26/24
06:59 06:59 06:59
Intake Total 120 / 120
Output Total 2099 / 2099 500 / 500
Balance -2099 / -2099 -380 / -380
--- NOTE | 2024-10-25 13:46 | HOSPNOTE ---
Spoke with son in law and family is in agreement with hospice and the philosophy and patient can go back to [facility] with their preferred hospice provider. CM and Attending updated and in agreement. We will sign off.
--- NOTE | 2024-10-25 15:33 | CM ---
Addendum entered by Leo Bravo 10/25/24 16:20:
IMM reviewed, placed on chart, pt has a copy.
Original Note:
CM following re: discharge planning.
Reviewed pt's chart, met with pt and pt's son in law at bedside.
per hospice clinical marketer, pt does not qualify for inpatient hospice level of care.
Both pt and her family are aware that they requested pt returns back to [facility] with hospice provider that is in contract with [facility].
CM spoke to [facility] liaison and she confirmed that [facility] is contracted with [facility].
A referral to [facility] made, spoke to ABI De Anda and she confirmed that pt will be accepted for admission to hospice care tomorrow.
Updated pt's clinical faxed to [facility], spoke to liaison Peri and she confirmed that pt will be accepted for admission tomorrow and will be signed in on hospice carte with [facility].
[facility] nursing report:[phone]
Discharge instructions fax: [phone]
D/C plan: return back to [facility] tomorrow with [facility] care.
[2024-10-25 19:35] VITALS: BP 117/76
[2024-10-26 07:05] VITALS: BP 141/69
--- NOTE | 2024-10-26 08:10 | W.PN.HOSP.TC ---
Today's Communication/Plan
-
discharge
Assessment / Plan
Assessment / Plan
General: No Apparent Distress, appears Comfortable
HEENT: NormoCephalic, Moist mucous membranes, Atraumatic
Respiratory: Clear and Non Labored Respirations
Cardiac: S1/S2 and Regular Rhythm; No Rub or Gallop
GI: Soft, Non Tender, Non Distended and Normal Bowel Sounds
Musculoskeletal: No Edema, no deformity, decreased muscle bulk throughout
Skin: Warm and dry, pale
Neuro: AOx1 oriented only to self, pleasantly confused/demented some echolalia noted
Psych: Calm cooperative
Ms. Rivera is a 73-year-old female with a medical history of CAD (stents x 2), Parkinson's dementia, uterine cancer (status post JODI), and hypothyroidism who presented with vague abdominal pain and nausea for the past few days. Her daughter also
reports significant weight loss of approximately 20 pounds in the past 4 weeks. Outpatient workup has been ongoing, including a GI office visit today at which point it was recommended she go to the emergency department for further evaluation and
management. In the ED she was hemodynamically stable. However CT imaging of her abdomen and pelvis with IV and oral contrast revealed severe acute cystitis with suspected bilateral pyelonephritis in addition to acute left common femoral DVT and
mild proctocolitis. She was given IV fluids, started on antibiotics, and anticoagulated with Eliquis. She has been admitted for further evaluation and management.
10/23/24 New onset sz episode, described as right gaze deviation with de-corticate positioning lasting for a few min, self-aborted
-confirmed with Daughter Ashley, patient has never had a seizure before
-CT head CTA head/neck reviewed noted no acute intracranial hemorrhage, PE was noted along with multinodular goiter
-transferred to IMU for closer monitoring
-neuro eval appreciated started on keppra 1000 mg BID, cont
-EEG results reviewed no sz activity recorded
-aspiration/sz precautions
-speech eval appreciated soft bite sized diet since advanced to regular with comfort measures as below
Parkinson
-home sinemet was continued, held while NPO d/t post-ictal, substituted with Neupro while held. Parkinson medications since discontinued for comfort measures as below
Hypokalemia/Hypomagnesemia/Hypophosphatemia
repleted resolved
Significant weight loss:
- Daughter reports 20 pound weight loss over the past 4 weeks
- CT imaging showed mild proctocolitis and the acute cystitis with bladder wall thickening
- UA shows RBCs with few WBCs and bacteria, urine culture growing MDR Proteus susceptible to cefepime
- Hemoglobin dropped to yesterday morning 7.1 and so was transfused 1 unit PRBCs, hemoglobin 8.9 on labs this morning
- Clinical picture suspicious for malignancy especially considering finding of acute DVT, workup ongoing
- bowel prep over the weekend with planned upper and lower endoscopy on Monday 10/23 after Eliquis washout, procedure canceled d/t new onset sz as above
- GI eval appreciated daughter no longer wished to pursue endoscopic evaluation, daughter further expressed interest in pursuing hospice, see goals of care discussion as below
- CEA appreciated 3.74 mildly elevated for non-smokers
Anemia requiring transfusion:
- Hemoglobin dropped from 8.6-7.1, likely partially dilutional after IV fluids
- Transfused 1 unit PRBCs with good response noted
- Planed upper and lower GI scope on held d/t new onset sz as above and subsequently canceled following goals of care discussion as below.
- Monitor for brisk bleeding and transfuse further as needed
- Remains hemodynamically stable
Cystitis with suspected pyelonephritis:
- Urine cultures growing MDR Proteus, treated with Cefipime later switched to Ceftriaxone d/t sz concerns
- abx since discontinued with comfort measures as below
Acute DVT/NH:
- Left common femoral vein, later CTA head/neck would also note PE
- respiratory status remains stable on room air
- Anticoagulation since discontinued with comfort measures as below
DVT prophylaxis discontinued with comfort measures as below
CODE STATUS: DNR
Goals of Care Discussion 10/24/24:
Discussed with patient's daughter healthcare proxy Ashley following her discussion with Hospice Consult RN. Daughter reported agreement with Hospice Philosophy and requested patient be converted to comfort measures, prioritizing patient's quality
of life in her remaining time and discontinuing measures/treatments/testing/imaging that may prolong patient's life without significant positive contribution to quality. Discussed potential outcomes of comfort measures where patient may pass
quickly, require inpatient hospice, or potentially may remain stable to continue with hospice at SNF. Patient's daughter was able to verbalize her understanding and confirm desire to proceed. Patient unable to make decisions for herself, has been
relying on daughter to make decisions for her for some time now. Hospice appropriate end stage disease Parkinson Dementia Failure to thrive poor oral intake non-ambulatory for a year, new onset sz disorder, likely prognosis less 1 month. Care
updated as per patient's family's wishes and patient transferred to med/surg
10/25/24 Patient remains relatively stable on comfort measures. Requiring no IV prn medications. Hospice eval appreciated appropriate for return to SNF on hospice. Case mgmt arranging
10/26/24 Stable for discharge back to SNF with hospice services
discussed with patient's daughter Ashley
Total Time Preparing Discharge ___40____ minutes including examination of the patient, summary of the hospital stay, instructions for continuing care to all relevant caregivers; and preparation of discharge records, prescriptions, and referral
forms if necessary.
Anticipated Discharge: Today
Subjective/Interval History
-
Date of Service: October 26, 2024
Seen and examined at bedside in no acute distress resting comfortably in bed. Awake alert conversant. Pleasantly confused cooperative conversant. Some echolalia noted.
Objective Data
-
Vital Signs:
Vital Signs
Temp Pulse Resp BP Pulse Ox
98.3 F 97 16 117/76 97
10/25/24 19:35 10/25/24 19:35 10/25/24 19:35 10/25/24 19:35 10/25/24 19:35
I&O
10/25/24 10/26/24 10/27/24
06:59 06:59 06:59
Intake Total 120 / 120 240 / 240
Output Total 500 / 500
Balance -380 / -380 240 / 240
[2024-10-26] MEDS: KEPPRA 1000 MG PO (08:24)
--- NOTE | 2024-10-26 09:12 | CM ---
Addendum entered by Leo Bravo 10/26/24 10:18:
phosphoric acid supervisor time 12:00 p.m.
Both pt, her family, [facility] liaison and [facility] field collector Neetu are aware.
Hospice order with discharge summary faxed to [facility] at [phone]
Original Note:
CM following re: discharge planning.
Reviewed pt's chart, met with pt.
According to MD pt is medically stable to be discharged back to [facility] with hospice care.
CM spoke to [facility] liaison and she confirmed that pt is accepted for admission today and pt will be signed in on hospice care with [facility] when arrives.
CM spoke to [facility] collector Neetu and she confirmed that pt will be signed in on hospice at [facility] when arrives and discharge time around 11:00 am - 12:00 p.m. requested.
[facility] to arrange ambulance transport BLS with requested pick up driver time 11:00 a.m - 12:00 pm. PMNC completed and left with [facility]. MD is aware to sign out of hospital DNR.
[facility] nursing report: [phone]
Discharge instructions fax: [phone]
D/C plan: return back to [facility] with [facility] care.
--- NOTE | 2024-10-26 09:39 | W.DCSUMMARY ---
Discharge Summary
Discharge Data
Date of Admission: 10/20/24
Date of Discharge: 10/26/24
-
Pending Results: No
Discharge Plan
-
Patient Disposition: [facility]pc/SNF
Discharge Diagnosis/Procedures: New onset Seizure Disorder
Parkinson
Anemia
Cystitis with suspected pyelonephritis:
Acute Deep Vein Thrombosis and Pulmonary Embolism
Condition: Fair
Diet: Regular
Activity: As tolerated
Driving Restrictions: No driving
Bathing Restrictions: None
Other Services: Hospice
Activity Restrictions/Additional Instructions:
Follow up with hospice on discharge and primary care provider in 1 week of discharge.
Keppra started for seizure disorder. Medications adjusted in alignment with comfort care goals. Medications such as amlodipine, aspirin, statin and Sinemet (medications that prolong patient's life without significantly adding to quality of life)
discontinued in pursuant comfort care.
Please take medications as prescribed/recommended and follow up with hospice, primary care provider, and/or other healthcare provider involved in care for refills and/or further adjustment to medication regimen as necessary.
Referrals:
Mg Gautam MD [Family Provider] - in one week
Prescriptions:
New
levetiracetam 500 mg/5 mL (5 mL) Solution
1,000 mg PO BID Qty: 250 0RF
Continued
acetaminophen 325 mg Tablet
650 mg PO Q4HPRN MDD 3000mg PRN (Reason: mild pain/temp>100F)
ondansetron HCl 4 mg Tablet
4 mg PO Q6HPRN PRN (Reason: nausea)
bisacodyl [Dulcolax (bisacodyl)] 10 mg Suppository
10 mg AR DAILYPRN PRN (Reason: if mom is ineffective after 24hrs)
calcium carbonate [Tums] 200 mg calcium (500 mg) Tablet,Chewable
400 mg PO Q8HPRN PRN (Reason: indigestion)
Fleet Enema 19-7 gram/118 mL Enema
118 ml AR DAILYPRN PRN (Reason: if dulcolax is ineffective after 24hrs)
nitroglycerin [Nitrostat] 0.4 mg Tablet, Sublingual
0.4 mg SUBLINGUAL [id number] PRN (Reason: chest pain)
simethicone 80 mg Tablet,Chewable
80 mg PO Q6HPRN PRN (Reason: gas)
polyethylene glycol 3350 [Miralax] 17 gram Powder In Packet
17 g PO DAILYPRN PRN (Reason: CONSTIPATION)
magnesium hydroxide [Milk of Magnesia] 400 mg/5 mL Suspension
30 ml PO DAILY PRN (Reason: CONSTIPATION)
Discontinued
atorvastatin 40 mg Tablet
40 mg PO HS
amlodipine 2.5 mg Tablet
2.5 mg PO DAILY
famotidine 20 mg Tablet
20 mg PO DAILY
pantoprazole 40 mg Tablet,Delayed Release (Dr/Ec)
40 mg PO DAILY
methimazole 5 mg Tablet
2.5 mg PO DAILY
aspirin 81 mg Tablet,Chewable
81 mg PO DAILY
carbidopa-levodopa 25-100 mg Tablet
1.5 tab PO QID
metoprolol tartrate 25 mg Tablet
25 mg PO BID
calcium carbonate [Oyster Shell Calcium] 500 mg calcium (1,250 mg) Tablet
500 mg PO BID
mirtazapine 30 mg Tablet
30 mg PO HS
rivastigmine tartrate 3 mg Capsule
3 mg PO BID
sertraline [Zoloft] 25 mg Tablet
75 mg PO DAILY
Rx Instructions:
PER ASSISTED MAR - 25 MG + 50 MG TAB = 75 MG TTD
Discharge Orders:
Discharge Patient (As Directed); Ordered 10/26/24
Ordered By: Kai Torres
Discharge Date and Time
Print Language: [id number]
[2024-10-26 11:00] VITALS: BP 124/70
== END 2024-10-26 12:19 | DRG 56 ==
LOC: 2 NORTH 16:16
PROVIDERS: Nurse Practitioner Adult Health; Registered Nurse; ADMITTING PHYSICIAN Internal Medicine; ATTENDING PHYSICIAN Internal Medicine; CONSULT PHYSICIAN Internal Medicine; CONSULT PHYSICIAN Psychiatry & Neurology Neurology; EMERGENCY PHYSICIAN Student in an Organized Health Care Education/Training Program; FAMILY PHYSICIAN Internal Medicine
PROC: 30233N1 Transfusion of Nonautologous Red Blood Cells into Peripheral Vein, Percutaneous Approach (ICD-10-PCS; 2024-10-21)
DX: G20.A1 Parkinson's disease without dyskinesia, without mention of fluctuations (principal); E43 Unspecified severe protein-calorie malnutrition; I26.99 Other pulmonary embolism without acute cor pulmonale; N10 Acute pyelonephritis; I82.412 Acute embolism and thrombosis of left femoral vein; F02.83 Dementia in other diseases classified elsewhere, unspecified severity, with mood disturbance; F02.84 Dementia in other diseases classified elsewhere, unspecified severity, with anxiety; N30.00 Acute cystitis without hematuria; M48.56XA Collapsed vertebra, not elsewhere classified, lumbar region, initial encounter for fracture; Z68.1 Body mass index [BMI] 19.9 or less, adult; G40.909 Epilepsy, unspecified, not intractable, without status epilepticus; K59.00 Constipation, unspecified; I25.10 Atherosclerotic heart disease of native coronary artery without angina pectoris; Z95.5 Presence of coronary angioplasty implant and graft; F32.A Depression, unspecified; E03.9 Hypothyroidism, unspecified; Z85.42 Personal history of malignant neoplasm of other parts of uterus; E87.6 Hypokalemia; D64.9 Anemia, unspecified; I50.9 Heart failure, unspecified; I73.9 Peripheral vascular disease, unspecified; J44.89 Other specified chronic obstructive pulmonary disease; K21.9 Gastro-esophageal reflux disease without esophagitis; M43.16 Spondylolisthesis, lumbar region; M47.816 Spondylosis without myelopathy or radiculopathy, lumbar region; N20.0 Calculus of kidney; R62.7 Adult failure to thrive; E05.90 Thyrotoxicosis, unspecified without thyrotoxic crisis or storm; E78.00 Pure hypercholesterolemia, unspecified; I11.0 Hypertensive heart disease with heart failure; I25.2 Old myocardial infarction; I49.3 Ventricular premature depolarization; Z79.82 Long term (current) use of aspirin; Z79.899 Other long term (current) drug therapy; Z82.49 Family history of ischemic heart disease and other diseases of the circulatory system; Z87.891 Personal history of nicotine dependence; Z88.0 Allergy status to penicillin; Z88.2 Allergy status to sulfonamides; Z90.710 Acquired absence of both cervix and uterus
CPT/HCPCS: 51701; 70496; 70498; 74177; 80048; 80053; 81003; 81015; 82378; 82607; 82728; 82746; 82962; 83540; 83550; 83735; 84100; 84443; 85014; 85018; 85025; 85027; 85610; 85730; 86850; 86900; 86901; 86920; 87070; 87077; 87086; 87186; 92610; 93005; 95816; 96361; 96374; 96375; 97163; 97167; 99285; P9016; Q9967